=== PATIENT | female | born 1940 | race Caucasian/White ===

== ENCOUNTER 2017-03-15 06:39 | Inpatient (IN) ==
--- NOTE | 2017-03-15 07:22 | Emergency Department Report ---
General Adult HPI - General Chief complaint: Medical Emergency Stated complaint: Medication evaluation Time Seen by Provider: 03/15/17 07:22 Source: patient, family, EMS Mode of arrival: EMS Limitations: no limitations - History of Present Illness HPI narrative: Patient is a 76-year-old female presents to the emergency department for evaluation of possible generations admit. Patient history of bipolar disorder, states she stopped taking her medicine this weekend due to a surprise visit by her sons. Patient threw all of her medicines away. Patient this morning apparently turned off and unplugged all the night lights in the house as well as the coffee pot family has been concerned about her, called EMS this morning to bring patient to the ER. Original report was possible suicidality, patient denies this. Discuss case with family has been concerned about the patient for approximately a month now, he suspects she's been stopped taking her medications a month ago. Patient is not suicidal or homicidal by his report, is having issues that appear to be due to bipolar disorder out of control, did have a meeting with his psychiatrist and there is a prescription for lithium waiting. Patient brought to the ER for evaluation - Related Data Home Medications Medication Instructions Recorded Confirmed aspirin 81 mg tablet,delayed 81 mg PO DAILY tab 01/01/17 03/15/17 release lithium carbonate ER 300 mg 300 mg PO DAILY tab 01/01/17 03/15/17 tablet,extended release Previous Rx's Medication Instructions Recorded Synthroid 75 mcg tablet 75 mcg PO QAM #90 tab NS 02/02/17 Allergies Allergy/AdvReac Type Severity Reaction Status Date / Time methimazole Allergy Verified 02/02/17 08:31 Review of Systems Constitutional: Denies: fever, chills Eyes: Denies: eye discharge, vision change ENT: Denies: throat pain, dental pain Cardiovascular: Denies: chest pain, palpitations, dyspnea on exertion Respiratory: Reports: wheezes. Denies: dyspnea, hemoptysis Gastrointestinal: Denies: abdominal pain, nausea, vomiting Genitourinary: Denies: urgency, dysuria, frequency Musculoskeletal: Denies: back pain, joint swelling Neurological: Denies: headache, weakness Psychiatric: Reports: anxiety PFSH Patient Stated Medical History Bipolar Disorder Yes Clinic Medical History (Last Reviewed 02/02/17 @ 08:34 by Servando Tiwari MD) Postablative hypothyroidism (Chronic Medical ~11/2016) Clinically improved, but TSH is still elevated. Needs more Synthroid. Obesity (BMI 30-39.9) (Chronic Medical) Little better. Bipolar disorder Surgical History: Hysterectomy;1985 Family History: Family History (Last Reviewed 02/02/17 @ 08:34 by Servando Tiwari MD) Father Heart disease Mother Ovarian cancer - Social History Smoking status: Never smoker Substance use type: does not use Alcohol intake frequency: does not drink Physical Exam - Limitations Limitations: no limitations - General General appearance: alert, in no apparent distress - Eye Eye exam: Present: EOMI - ENT ENT exam: Present: normal oropharynx, mucous membranes moist - Chest Chest inspection: Present: symmetric chest wall rise. Absent: tenderness, rash - Respiratory Respiratory exam: Present: normal lung sounds bilaterally. Absent: respiratory distress, wheezes, stridor - Cardiovascular Cardiovascular exam: Present: regular rate, normal rhythm, normal heart sounds - Abdominal Exam Abdominal exam: Present: soft. Absent: distention, tenderness - Extremities Exam Extremities exam: Present: full ROM, normal capillary refill. Absent: tenderness - Back Exam Back exam: Present: full ROM. Absent: tenderness, CVA tenderness (R), CVA tenderness (L), muscle spasm - Skin Skin exam: Present: warm, dry - Psychiatric Psychiatric exam: Present: normal affect, normal mood, agitated Course Vital Signs Temperature 97.6 F 03/15/17 07:41 Pulse Rate 62 03/15/17 07:41 Respiratory Rate 18 03/15/17 07:41 Blood Pressure 160/97 H 03/15/17 07:41 Pulse Oximetry 94 03/15/17 07:41 Temperature 97.6 F 03/15/17 07:41 Pulse Rate 62 03/15/17 07:41 Respiratory Rate 18 03/15/17 07:41 Blood Pressure 160/97 H 03/15/17 07:41 Pulse Oximetry 94 03/15/17 07:41 Medical Decision Making - [facility] Narrative Medical decision making narrative: Patient does have loose associations and somewhat flight of ideas, patient also has stopped taking her thyroid medications, current TSH 78. Discuss case with Dr. Tiwari, patient does not meet any medical inpatient criteria he would just restart her thyroid 75 g daily recheck thyroid level in a month. Patient is currently being evaluated for generations admission. Does have a urinary tract infection - Differential Diagnosis poorly controlled bipolar disorder, electrolyte disturbances, UTI, - Medical Records Medical records reviewed: Yes: I reviewed the patient's medical records. - Lab Data Lab results reviewed: Yes: I reviewed the patient's lab results. Result diagrams: 03/15/17 07:40 03/15/17 07:40 Lab Results 03/15/17 03/15/17 03/15/17 Range/Units 07:40 07:40 07:55 WBC 7.3 (4.5-11.0) T/MM3 RBC 4.37 (4.00-5.20) M/MM3 Hgb 14.4 (12-16) GM/DL Hct 42.5 (36-46) % MCV 97.3 (80-100) UM3 MCH 33.0 (26-34) UUG MCHC 33.9 (31-37) GM/DL RDW Std Deviation 47.8 (36.9-50.2) FL Plt Count 187 (130-400) T/MM3 MPV 11.2 (9.4-12.4) UM3 Immature Gran % (Auto) 0.1 (0.0-0.5) % Neut % (Auto) 73.8 H (33-66) % Lymph % (Auto) 21.9 L (23-45) % [place] % (Auto) 3.4 (0-9.0) % Eos % (Auto) 0.4 (0-4) % Baso % (Auto) 0.4 (0-2) % Neut # 5.4 (1.8-7.7) T/MM3 Lymph # 1.6 (1-4.8) T/MM3 [place] # 0.3 (0-0.8) T/MM3 Eos # 0.0 (0-0.5) T/MM3 Baso # 0.0 (0-0.2) T/MM3 Abs Immat Gran (auto) 0.01 (0.00-0.03) T/MM3 Turbidity < 20 (0-20) Sodium 144 (134-144) MEQ/L Potassium 3.7 (3.6-5) MEQ/L Chloride 110 H (98-107) MEQ/L Carbon Dioxide 25 (22-30) MEQ/L Anion Gap 9 (5-15) MEQ/L BUN 15.0 (7-17) MG/DL Creatinine 0.8 (0.7-1.2) MG/DL GFR Calculation 70 BUN/Creatinine Ratio 19 (6-26) RATIO Glucose 108 (65-110) MG/DL Calculated Osmolality 279 (261-280) MOSM/KG Calcium 9.2 (8.4-10.2) MG/DL Total Bilirubin 0.70 (0.20-1.30) MG/DL Icterus Index < 2 (0-7) AST 37 H (14-36) U/L ALT 41 (9-52) U/L Alkaline Phosphatase 54 (38-126) U/L Total Protein 6.6 (6.3-8.2) G/DL Albumin 3.9 (3.5-5.0) G/DL Globulin 2.7 (2.4-3.6) G/DL Albumin/Globulin Ratio 1.4 (1.1-2.2) RATIO TSH 78.70 H (0.47-4.68) MIU/L Specimen Hemolysis < 15 (0-25) Ur Collection Type Urine, clean catch Urine Color Yellow (YELLOW) Urine Clarity Sl cloudy Urine pH 6.0 (5.0-8.0) Ur Specific [place] 1.020 (1.015-1.025) Urine Protein Negative (NEGATIVE) Urine Glucose (UA) Negative (NEGATIVE) Urine Ketones Trace A (NEGATIVE) Urine Occult Blood Trace-intact (NEGATIVE) Urine Nitrate Positive A (NEGATIVE) Urine Bilirubin Negative (NEGATIVE) Urine Urobilinogen 0.2 (NORMAL) EU/DL Ur Leukocyte Esterase 1+ A (NEGATIVE) Urine RBC 0-1 (0-3) /HPF Urine WBC 10-20 H (0-5) /HPF Urine WBC Clumps Few Ur Squamous Epith Cells 5-10 Urine Bacteria 4+ H (NEGATIVE) Ur Culture Indicated? Cult reflexed &setup [place] < 0.2 L (0.6-1.2) MMOL/L - Radiology Data Radiology results reviewed: Yes: I reviewed the patient's radiology results. Chest x-ray: No acute cardiopulmonary findings - EKG Data EKG #1 EKG attestation: Yes: I reviewed and interpreted this EKG. EKG shows normal: sinus rhythm Rate: bradycardia Rhythm: NSR Sundown/QRS: normal Interpretation: no acute changes Disposition Clinical Impression: Bipolar disorder, unspecified Qualifiers: Active/Remission status: in partial remission Most recent bipolar episode type : manic Qualified Code(s): F31.73 - Bipolar disorder, in partial remission, most recent episode manic Urinary tract infection Qualifiers: Urinary tract infection type: acute cystitis Hematuria presence: without hematuria Qualified Code(s): N30.00 - Acute cystitis without hematuria Hypothyroidism Qualifiers: Hypothyroidism type: postablative Qualified Code(s): E89.0 - Postprocedural hypothyroidism Disposition: 64 To [facility] [place] Generations Condition: Stable Prescriptions: No Action lithium carbonate ER 300 mg tablet,extended release 300 mg PO DAILY tab aspirin 81 mg tablet,delayed release 81 mg PO DAILY tab Synthroid 75 mcg tablet 75 mcg PO QAM #90 tab NS Time of Disposition: 09:17 - Seen By: physician
--- OUTSIDE RECORDS SUMMARY | 2017-03-15 07:31 | External Medical Summary ---
:1940 Author Organization [facility]. Summary purpose CCDA Sent to [facility] Chief Complaint and Reason for Visit Admit Diagnosis 1 RASH Problem list No authorized problems tracked for continuity of care are available for this visit. Encounters No authorized problems tracked for encounter diagnoses are available for this visit. Medications No medications recorded for this patient visit Allergies, adverse reactions, alerts Allergen Category Ingredient Status Reaction Severity Onset Influenza Virus Drug Influenza Virus Active thickness in Adolescence Vaccines Vaccines throat Immunizations No immunizations recorded for this patient visit Relevant diagnostic tests and/or laboratory data RESULTS CBC :25:00 Result Normal Range Units WBC H 14.99 4.8-10.8 x103/mm3 Neutrophil % H 84.9 50-70 % Lymph % L 11.6 20-50 % [place] % 3.1 1.0-9.0 % Eosinophil % 0.3 0-4 % Basophil % 0.1 0-2 % Neutrophil # H 12.73 3.0-7.0 x103/mm3 Lymph # 1.74 1.0-4.0 x103/mm3 [place] # 0.46 0.0-0.8 x103/mm3 Eosinophil # 0.04 0-0.5 x103/mm3 Basophil # 0.02 0-0.2 x103/mm3 RBC 4.90 4.20-5.40 x103/mm3 HGB 15.4 12.0-16.0 g/dl HCT 43.7 37.0-47.0 % MCV 89.2 81-99 FL MCH H 31.4 27.0-31.0 pg MCHC 35.2 32.0-36.0 g/dl RDW 14.4 12-15 % Platelet 261 150-400 x103/mm3 MPV H 11.6 6.0-10.0 FL Chemistry Group :25:00 Result Normal Range Units Sodium 136 134-145 mmol/L Potassium 4.1 3.6-5.0 mmol/L Chloride 99 98-107 mmol/L CO2 25 22-30 mmol/L Glucose H 139 75-110 mg/dl BUN 15 9-20 mg/dl Creatinine L .78 0.8-1.7 mg/dl eGFR 72 ml/min. Total Protein 7.1 6.3-8.2 g/dl Albumin 3.7 3.5-5.0 g/dl Calcium 9.2 8.4-10.2 mg/dl Alk Phos 74 38-126 U/L AST 36 14-36 U/L ALT 27 11-66 U/L T Bili 1.0 0.2-1.3 mg/dl A/G Ratio 1.1 Ratio Special Chemistry Group [id number] Result Normal Range Units Free T4 H 2.17 0.75-1.54 ng/dl TSH L < 0.03 0.50-6.00 uIU/mL Reference Lab Group [id number]:00 Result Normal Range Units [place] L 0.50 0.60-1.20 mEq/L [place] performed at [facility] Reference Lab, [address] [place] [address] Group Fitness Manager Andressa Rivero DO [id number]:00 Result Normal Range Units Free T3 2.8 1.7-3.7 pg/mL T3 Free performed at [facility] Reference Lab, [address] [place], [place] [address] Group Fitness Manager Andressa Rivero DO History of procedures Procedure Code Code Type Description Date Performed Performing Physician 93976 CPT-4 ASSAY THYROID STIM 02-17-2016 EDWIN MCDERMOTT HORMONE 30048 CPT-4 COMPREHEN METABOLIC 02-17-2016 EDWIN MCDERMOTT PANEL 14054 CPT-4 COMPLETE CBC, 02-17-2016 EDWIN MCDERMOTT AUTOMATED 46473 CPT-4 FREE ASSAY (FT-3) 02-17-2016 EDWIN MCDERMOTT 56637 CPT-4 ASSAY OF FREE 02-17-2016 EDWIN MCDERMOTT THYROXINE 10289 CPT-4 ASSAY OF LITHIUM 02-17-2016 EDWIN MCDERMOTT 98183 CPT-4 EMERGENCY DEPT VISIT 02-17-2016 EDWIN MCDERMOTT Functional status Cognitive Status Finding Observation Time Level of Consciousne Alert [id number] Oriented to Person Yes [id number] Yes :46 Oriented to Time Yes :46 Vital signs Type Value Date Respirations 20 :30 Pulse 112 :31 O2 Saturation 94% :30 Systolic Blood Press 118mm/HG :30 Diastolic Blood Pres 67mm/HG :30 Temperature (Fahr) 97.6Degrees :30 Height 64in :40 Weight 145LB :40 Social history Type Value Smoking Status UNKNOWN IF EVER SMOKED Treatment Plan No treatment plan text is available for this visit. Hospital discharge instructions No discharge instruction text is available for this visit.
--- NOTE | 2017-03-15 08:17 | XRay Report ---
Indication: generations screening PROCEDURE: XR chest 1V: Encounter: Initial Comparison: None FINDINGS: The lungs are clear. There is no abnormal airspace opacity, pleural effusion or pneumothorax identified. The heart size, pulmonary vasculature and mediastinum are within normal limits. No significant skeletal abnormality is seen. IMPRESSION: No acute cardiopulmonary abnormality. .
[2017-03-15] MEDS ORDERED: HALOPERIDOL 5 MG/ML INJECTION IM PRN (09:17)
[2017-03-15] MEDS ORDERED: LORazepam 0.5 MG TABLET PO PRN (09:17)
[2017-03-15] MEDS ORDERED: HALOPERIDOL 0.5 MG TABLET PO PRN (09:17)
[2017-03-15 12:20] VITALS: BMI 31.9
--- NOTE | 2017-03-15 12:40 | History & Physical Report ---
<Brielle Ramirez D - Last Filed: 03/15/17 12:36> History of Present Illness Date: 03/15/17 Chief complaint: "Messed up" HPI: Brielle Haro is a 76 year old woman with a history of bipolar disorder and hypothyroidism. Family wanted her evaluated for Generations because she stopped taking all of her medications about a month ago, and has been behaving oddly. She saw Dr. Tiwari for hypothyroidism on 02/02/17 at which time Synthroid was increased to 75 mcg because TSH was 17.41. Today, her TSH is 78.7. She also has a UTI. She states she's felt cold recently. She states that other than being "messed up" and "upside down" she doesn't have any acute medical complaints. She notes some numbness to the arch of her left foot, but wasn't able to say how long it's been present, other than it didn't start recently. She described a fall but wasn't able to provide details, and indicated that since then she's had the arch numbness. She's been able to ambulate without difficulty. She denies any fever or chills, cough, dysphagia, dizziness, weakness, fatigue. No chest pain or cardiac or breathing complaints. She denies abdominal pain/ bloating, n/v/d or constipation. She denies any dysuria or frequency but wasn't surprised to hear that she has UTI. She denies joint pain and has good active ROM. She reports that she's been sleeping well. Review of Systems Comprehensive ROS: completed and no additional positive findings except those as stated - Neurological Neurological: Present: as per HPI - Endocrine Endocrine: Present: other (feels cold) PFSH Bipolar disorder Postablative hypothyroidism Obesity (BMI 30-39.9) Surgical History: Hysterectomy;1985. thyroid ablation Family History: Father - Heart disease Mother - Ovarian cancer 2 sons A&W - Social History Smoking status: Never smoker Substance use type: does not use Alcohol intake frequency: does not drink Household members: spouse Current occupational status: retired Previous occupational history: homemaker Medications Home Medications Medication Instructions Recorded Confirmed Type aspirin 81 mg tablet,delayed 81 mg PO DAILY tab 01/01/17 03/15/17 History release lithium carbonate ER 300 mg 300 mg PO DAILY tab 01/01/17 03/15/17 History tablet,extended release Allergies Allergy/AdvReac Type Severity Reaction Status Date / Time Influenza Virus Vaccines Allergy Intermediate Rash Verified 03/15/17 13:21 methimazole Allergy Verified 02/02/17 08:31 Exam Vital Signs: Temperature 97.6 F 03/15/17 07:41 Pulse Rate 62 03/15/17 08:30 Respiratory Rate 18 03/15/17 08:30 Blood Pressure 124/75 03/15/17 08:30 Pulse Oximetry 94 03/15/17 08:30 Height/Weight/BMI: Height 1.57 m Weight 79.2 kg Body Mass Index 31.9 - Constitutional Present: no acute distress, well nourished, well developed, obese - Routine HEENT Exam Head: Present: normocephalic Eye: Present: PERRL. Absent: conjunctival icterus, scleral injection, exophthalmos ENT: Present: mucous membranes moist, oropharynx clear - Routine Neck Exam Present: supple. Absent: tenderness, swelling - Routine Respiratory Exam Present: CTA bilaterally - Routine Cardiovascular Exam Present: RRR, S1, S2 - Routine Abdominal Exam Present: soft, normoactive bowel sounds, non distended, non tender - Routine Extremities Exam Present: edema (trace b/l), pulses intact, normal capillary refill. Absent: calf tenderness Comments: feet inspected - no bruising/signs of trauma, nontender, no wounds - Routine Back/Spine/Pelvis Exam Back/Spine: Present: full ROM. Absent: vertebral tenderness - Routine Skin Exam Present: intact, dry, warm - Routine Neurological Exam Present: alert, oriented X3, CN II-XII intact, normal speech - Routine Psychiatric Exam Present: normal affect, cooperative Results - Labs CBC & Chem 7: 03/15/17 07:40 03/15/17 07:40 Assessment and Plan (1) Bipolar disorder, unspecified Current visit: Yes Status: Acute (2) Postablative hypothyroidism Current visit: No Status: Chronic (3) Urinary tract infection Current visit: Yes Status: Acute Resuscitation Status: Full Code Assessment and Plan: ASSESSMENT Bipolar disorder Asymptomatic bacteruria Hypothyroidism, postablation PLAN Psychiatric management per Dr. Roy. [place] has been restarted. Recommend routine workup. Asymptomatic bacteruria - will wait to start antibiotics. Follow results of culture. If she becomes symptomatic will start antibiotics. Resume Synthroid ( reports that he didn't think she's been taking her meds for about a month). When she last saw Dr. Tiwari 02/02/17 her TSH was 17.41 and he increased Synthroid to 75 mcg. Today, her TSH is 78.7 - ED MD discussed with Dr. Tiwari who recommended to resume Synthroid at 75 mcg. Recheck TSH in a month. Blood pressure was elevated on 2 of 3 readings since arrival. If this trend continues we may start her on an antihypertensive. Labs reviewed - stable. Mild elevation in AST. Dr. Tiwari's notes reviewed. Awaiting records from Dr. Bañuelos's office. Discussed with Dr. Man and [employer] staff. Hospital Course Summary Disclaimer: The visit summary below is not to be considered part of the above Progress Note. Hospital Course: 03/15/17-Hospitalist consult ASSESSMENT Bipolar disorder Asymptomatic bacteruria Hypothyroidism, postablation PLAN Psychiatric management per Dr. Roy. [place] has been restarted. Recommend routine workup. Asymptomatic bacteruria - will wait to start antibiotics. Follow results of culture. If she becomes symptomatic will start antibiotics. Resume Synthroid ( reports that he didn't think she's been taking her meds for about a month). When she last saw Dr. Tiwari 02/02/17 her TSH was 17.41 and he increased Synthroid to 75 mcg. Today, her TSH is 78.7 - ED MD discussed with Dr. Tiwari who recommended to resume Synthroid at 75 mcg. Recheck TSH in a month. Blood pressure was elevated on 2 of 3 readings since arrival. If this trend continues we may start her on an antihypertensive. Labs reviewed - stable. Mild elevation in AST. Dr. Tiwari's notes reviewed. Awaiting records from Dr. Bañuelos's office. Discussed with Dr. Man and [employer] staff. <Kerri Man - Last Filed: 03/15/17 21:35> History of Present Illness Date: 03/15/17 [facility] Patient Stated Medical History Hx Urinary Tract Infection Yes: current Other Yes: urgency Bipolar Disorder Yes Clinic Medical History (Last Reviewed 02/02/17 @ 08:34 by Servando Tiwari MD) Postablative hypothyroidism (Chronic Medical ~11/2016) Obesity (BMI 30-39.9) (Chronic Medical) Little better. Family History: Family History (Last Reviewed 02/02/17 @ 08:34 by Servando Tiwari MD) Father Heart disease Mother Ovarian cancer Exam Vital Signs: Temperature 97.2 F 03/15/17 20:44 Pulse Rate 62 03/15/17 20:44 Respiratory Rate 20 03/15/17 20:44 Blood Pressure 107/68 03/15/17 20:44 Pulse Oximetry 94 03/15/17 20:44 Height/Weight/BMI: Height 5 ft 2 in Weight 174 lb 9.698 oz Body Mass Index 31.9 Results - Labs CBC & Chem 7: 03/15/17 07:40 03/15/17 07:40 Assessment and Plan (1) Postablative hypothyroidism Current visit: No Status: Chronic (2) Bipolar disorder, unspecified Current visit: Yes Status: Acute (3) Urinary tract infection Current visit: Yes Status: Acute Assessment and Plan: I have independently evaluated and examined this patient. I reviewed the chart, the patient's history, and the PALEOBOTANIST/PA's documented findings as above. We discussed and formulated the assessment and plan as above with additions as below. The patient is resting quietly, the nurses report she has urinary frequency however she is drinking a lot of fluid. She has not complained of any pain on urination or any flank pain that the nurse's aware of. Physical exam as above she is resting quietly with no acute respiratory distress. no obvious flank pain It is unclear how she received the diagnosis of UTI suspect that she has asymptomatic bacteriuria will follow along with you.l Hospital Course Summary Disclaimer: The visit summary below is not to be considered part of the above Progress Note.
[2017-03-15] MEDS: LITHIUM CARBONATE 150 MG CAPSULE PO SCH ×2 (13:39→20:22)
[2017-03-15] MEDS: LEVOTHYROXINE 75 MCG TABLET PO SCH (13:39)
[2017-03-15] MEDS: ASPIRIN *EC* 81 MG TABLET PO SCH (13:39)
--- NOTE | 2017-03-15 20:35 | 24 Hour Neuropsychiatic Eval ---
Date of Admission: 03/15/17 09:38 Chief complaint: "My kids came home" History of Present Illness: HPI: 76 Y/O CF with a hx of Bipolar D/O and hypothyroidism BB for increasing odd behavior over the last few days. reports recently the pt stop taking her meds and has been increasingly confused with bizarre behavior. Pt would lie on the floor and not speak and not allow her to turn on the lights. She was paranoid believing her would be arrested and has not been sleeping. It was noted her [place] level was 0.2 and her TSh was in the 70's. On face to face the pt is pleasant but confused. She is tangential with pressured speech. She is a poor historian and is not able to give a very good hx. STRESSORS; Pt recently stopped taking her meds. Her lithium level is low and TSH is elevatyd. She also has a UTI. PSYCH ROS: Pt reports her mood is stable. She does report decreased need for sleep and her speech is pressured and tangential. She is hyperverbal but not irritable. She denies feeling depressed. Denies psychosis. PAST PSYCH: Unclear at this time. reports she has been diagnosed with Bipolar D/O and has numerous hospitalizations in the past but they wee many years ago. He states about every eight years the pt stops meds and has a similar episode PFS Patient Stated Medical History Hx Urinary Tract Infection Yes: current Other Yes: urgency Bipolar Disorder Yes Clinic Medical History (Last Reviewed 02/02/17 @ 08:34 by Servando Tiwari MD) Postablative hypothyroidism (Chronic Medical ~11/2016) Obesity (BMI 30-39.9) (Chronic Medical) Little better. Surgical History: Hysterectomy;1985. thyroid ablation Family History: Family History (Last Reviewed 02/02/17 @ 08:34 by Servando Tiwari MD) Father Heart disease Mother Ovarian cancer - Social History Smoking status: Never smoker Review of Systems - Psychiatric Psychiatric: Present: behavioral changes, difficulty concentrating, mood swings Mental Status Exam Vitals: Last Vital Signs Temp 97.6 F 03/15/17 10:05 Pulse 83 03/15/17 10:05 Resp 16 03/15/17 10:05 BP 144/84 H 03/15/17 10:05 Pulse Ox 94 03/15/17 10:05 Height: 1.57 m Weight: 79.2 kg - Mental Status Exam Muscle Strength/Tone: Normal Dressing: Casual Grooming: Good Attitude: Cooperative Motor Activity: Normal Eye Contact: Fair Speech: Rapid, Pressured Volume: Normal Rhythm: Appropriate Rhythm Orientation: Oriented X4 Mood: Euphoric Affect: Happy Rate of Thoughts: Pressured Thought Organization: Disorganized Associations: Flight of Ideas Abstract Reasoning: Poor abstract reasoning Thought Content: Grandeur Perception/Psychotic: Hx psychosis, not current Language: Naming Impaired Fund of Knowledge: Poor fund of knowledge Memory: Poor-immediate Suicidal Ideation: None Homicidal Ideation: None Insight: Poor Judgement: Poor Impulse Control: Poor - Laboratory Result Diagrams: 03/15/17 07:40 03/15/17 07:40 Assessment and Plan (1) Severe manic bipolar 1 disorder with psychotic behavior Current visit: Yes Status: Acute Will restart [place] 150mg PO BID. Consult medical team to treat hypothyroidism and UTI (2) Hypothyroidism Qualifiers: Hypothyroidism type: postablative Qualified Code(s): E89.0 - Postprocedural hypothyroidism Current visit: Yes Status: Acute (3) Urinary tract infection Qualifiers: Urinary tract infection type: acute cystitis Hematuria presence: without hematuria Qualified Code(s): N30.00 - Acute cystitis without hematuria Current visit: Yes Status: Acute
[2017-03-16] MEDS: LEVOTHYROXINE 75 MCG TABLET PO SCH ×2 (05:25→08:37)
[2017-03-16] MEDS: ASPIRIN *EC* 81 MG TABLET PO SCH (08:34)
[2017-03-16] MEDS: LITHIUM CARBONATE 150 MG CAPSULE PO SCH ×2 (08:35→20:29)
[2017-03-16] MEDS ORDERED: LITHIUM CARBONATE 300 MG PO SCH (09:00)
[2017-03-16] MEDS ORDERED: LITHIUM CARBONATE 300 MG CAPSULE PO SCH (09:00)
[2017-03-16] MEDS: NITROFURANTOIN (MACROBID) 100 MG CAPSULE PO SCH (12:02)
--- NOTE | 2017-03-16 18:55 | Neuropsych Progress Note ---
[facility] Subjective Date: 03/16/17 - Sujective/Severity of Illness Medications: Aspirin (Ecotrin) 81 mg PO DAILY [facility] Last Admin: 03/16/17 08:34 Dose: 81 mg Haloperidol (Haldol) 0.5 mg PO Q6H PRN PRN Reason: Extreme agitation Haloperidol Lactate (Haldol) 0.5 mg IM Q6H PRN PRN Reason: Extreme agitation Levothyroxine Sodium (Synthroid) 75 mcg PO ACB [facility] Carbonate ([place]) 150 mg PO BID [facility] Last Admin: 03/16/17 08:35 Dose: 150 mg Lorazepam (Ativan) 0.5 mg PO Q6H PRN PRN Reason: Extreme agitation Lorazepam (Ativan Inj) 0.5 mg IM Q6H PRN PRN Reason: Extreme agitation Nitrofurantoin Macrocrystals (Macrobid) 100 mg PO WB [facility] Stop: 03/18/17 08:01 Last Admin: 03/16/17 12:02 Dose: 100 mg Subjective: Pt seen and chart examined. Nursing reports pt is sleeping well and has a good appetite. On face to face the pt is a little more organized but remains some what disorganized and tangential. She is alert and oriented and states she feels she is improving. She is some what grandiose. She denies S/I or psychosis. Tolerating meds Start Time: 17:15 Stop Time: 17:30 Mental Status Exam Vitals: Last Vital Signs Temp 98.6 F 03/16/17 16:00 Pulse 64 03/16/17 16:00 Resp 16 03/16/17 16:00 BP 127/79 03/16/17 16:00 Pulse Ox 64 L 03/16/17 16:00 Height: 1.57 m Weight: 79.2 kg - Mental Status Exam Muscle Strength/Tone: Normal Dressing: Casual Grooming: Good Attitude: Cooperative Motor Activity: Normal Eye Contact: Fair Speech: Rapid, Pressured Volume: Normal Rhythm: Appropriate Rhythm Orientation: Oriented X4 Mood: Euphoric Rate of Thoughts: Pressured Thought Organization: Disorganized Associations: Flight of Ideas Abstract Reasoning: Poor abstract reasoning Thought Content: Grandeur Perception/Psychotic: Hx psychosis, not current Language: Naming Impaired Fund of Knowledge: Poor fund of knowledge Memory: Poor-immediate Suicidal Ideation: None Homicidal Ideation: None Insight: Poor Judgement: Poor Impulse Control: Poor - Laboratory Result Diagrams: 03/15/17 07:40 03/15/17 07:40 Assessment and Plan (1) Severe manic bipolar 1 disorder with psychotic behavior Current visit: Yes Status: Acute (2) Hypothyroidism Qualifiers: Hypothyroidism type: postablative Qualified Code(s): E89.0 - Postprocedural hypothyroidism Current visit: Yes Status: Acute (3) Urinary tract infection Qualifiers: Urinary tract infection type: acute cystitis Hematuria presence: without hematuria Qualified Code(s): N30.00 - Acute cystitis without hematuria Current visit: Yes Status: Acute Hospital Course Summary Disclaimer: The visit summary below is not to be considered part of the above Progress Note. Hospital Course: 03/15/17-Hospitalist consult ASSESSMENT Bipolar disorder Asymptomatic bacteruria Hypothyroidism, postablation PLAN Psychiatric management per Dr. Roy. [place] has been restarted. Recommend routine workup. Asymptomatic bacteruria - will wait to start antibiotics. Follow results of culture. If she becomes symptomatic will start antibiotics. Resume Synthroid ( reports that he didn't think she's been taking her meds for about a month). When she last saw Dr. Tiwari 02/02/17 her TSH was 17.41 and he increased Synthroid to 75 mcg. Today, her TSH is 78.7 - ED MD discussed with Dr. Tiwari who recommended to resume Synthroid at 75 mcg. Recheck TSH in a month. Blood pressure was elevated on 2 of 3 readings since arrival. If this trend continues we may start her on an antihypertensive. Labs reviewed - stable. Mild elevation in AST. Dr. Tiwari's notes reviewed. Awaiting records from Dr. Bañuelos's office. Discussed with Dr. Man and [facility] staff. 03/16/17 18:55 Pt remains tangential and some what disorganized. Increase [place] to 300mg PO BID
[2017-03-17] MEDS: ASPIRIN *EC* 81 MG TABLET PO SCH (10:01)
[2017-03-17] MEDS: NITROFURANTOIN (MACROBID) 100 MG CAPSULE PO SCH (10:01)
[2017-03-17] MEDS: LEVOTHYROXINE 75 MCG TABLET PO SCH (10:01)
[2017-03-17] MEDS: LITHIUM CARBONATE 150 MG CAPSULE PO SCH ×2 (10:02→20:07)
--- NOTE | 2017-03-17 12:38 | Neuropsych Progress Note ---
[facility] Subjective Date: 03/17/17 - Sujective/Severity of Illness Medications: Aspirin (Ecotrin) 81 mg PO DAILY [facility] Last Admin: 03/17/17 10:01 Dose: 81 mg Haloperidol (Haldol) 0.5 mg PO Q6H PRN PRN Reason: Extreme agitation Haloperidol Lactate (Haldol) 0.5 mg IM Q6H PRN PRN Reason: Extreme agitation Levothyroxine Sodium (Synthroid) 75 mcg PO ACB [facility] Last Admin: 03/17/17 10:01 Dose: 75 mcg [place] Carbonate ([place]) 300 mg PO BID [facility] Last Admin: 03/17/17 10:02 Dose: 300 mg Lorazepam (Ativan) 0.5 mg PO Q6H PRN PRN Reason: Extreme agitation Lorazepam (Ativan Inj) 0.5 mg IM Q6H PRN PRN Reason: Extreme agitation Nitrofurantoin Macrocrystals (Macrobid) 100 mg PO WB [facility] Stop: 03/18/17 08:01 Last Admin: 03/17/17 10:01 Dose: 100 mg Subjective: Pt seen and chart examined. Nursing reports pt is sleeping well and has a good appetite. Nursing reports pt can be some what disorganized and tangential with pressured speech. On face to face the pt states she is doing well. She reports her mood is stable. She remains some what pressured and tangential and slightly disorganized. She reports tolerating her medication well. Start Time: 11:30 Stop Time: 11:45 Mental Status Exam Vitals: Last Vital Signs Temp 99.0 F 03/17/17 08:00 Pulse 78 03/17/17 08:00 Resp 16 03/17/17 08:00 BP 116/80 03/17/17 08:00 Pulse Ox 95 03/17/17 08:00 Height: 1.57 m Weight: 79.2 kg - Mental Status Exam Muscle Strength/Tone: Normal Dressing: Casual Grooming: Good Attitude: Cooperative Motor Activity: Normal Eye Contact: Fair Speech: Rapid, Pressured Volume: Normal Rhythm: Appropriate Rhythm Orientation: Oriented X4 Mood: Euphoric Rate of Thoughts: Pressured Thought Organization: Disorganized Associations: Flight of Ideas Abstract Reasoning: Poor abstract reasoning Thought Content: Grandeur Perception/Psychotic: Hx psychosis, not current Language: Naming Impaired Fund of Knowledge: Poor fund of knowledge Memory: Poor-immediate Suicidal Ideation: None Homicidal Ideation: None Insight: Poor Judgement: Poor Impulse Control: Poor - Laboratory Result Diagrams: 03/15/17 07:40 03/15/17 07:40 Assessment and Plan (1) Severe manic bipolar 1 disorder with psychotic behavior Current visit: Yes Status: Acute (2) Hypothyroidism Qualifiers: Hypothyroidism type: postablative Qualified Code(s): E89.0 - Postprocedural hypothyroidism Current visit: Yes Status: Acute (3) Urinary tract infection Qualifiers: Urinary tract infection type: acute cystitis Hematuria presence: without hematuria Qualified Code(s): N30.00 - Acute cystitis without hematuria Current visit: Yes Status: Acute Hospital Course Summary Disclaimer: The visit summary below is not to be considered part of the above Progress Note. Hospital Course: 03/15/17-Hospitalist consult ASSESSMENT Bipolar disorder Asymptomatic bacteruria Hypothyroidism, postablation PLAN Psychiatric management per Dr. Roy. [place] has been restarted. Recommend routine workup. Asymptomatic bacteruria - will wait to start antibiotics. Follow results of culture. If she becomes symptomatic will start antibiotics. Resume Synthroid ( reports that he didn't think she's been taking her meds for about a month). When she last saw Dr. Tiwari 02/02/17 her TSH was 17.41 and he increased Synthroid to 75 mcg. Today, her TSH is 78.7 - ED MD discussed with Dr. Tiwari who recommended to resume Synthroid at 75 mcg. Recheck TSH in a month. Blood pressure was elevated on 2 of 3 readings since arrival. If this trend continues we may start her on an antihypertensive. Labs reviewed - stable. Mild elevation in AST. Dr. Tiwari's notes reviewed. Awaiting records from Dr. Bañuelos's office. Discussed with Dr. Man and [facility] staff. 03/16/17 18:55 Pt remains tangential and some what disorganized. Increase [place] to 300mg PO BID 03/17/17 12:38 Remains tangential and disorganized. Start Zyprexa 5mg HS
[2017-03-17] MEDS: OLANZapine 5 MG TABLET PO SCH ×3 (15:32→20:14)
--- NOTE | 2017-03-17 15:36 | Progress Note ---
Subjective: Brielle is seen sitting in the day room watching TV. Overall she states she is feeling very well. Her appetite is good. She believes she hasn't had a bowel movement since she came. Is not having any abdominal pain. Has been trying to drink plenty of fluids. In review of the chart, however, it is noted that she had 2 bowel movements yesterday. She is on Macrobid for UTI. It appears this was started by Dr. Man yesterday. Culture is pending. No chest pain or shortness of breath. Nurses have no concerns with her at this time. Objective Vital signs: Temperature 99.0 F 03/17/17 08:00 Pulse Rate 78 03/17/17 08:00 Respiratory Rate 16 03/17/17 08:00 Blood Pressure 116/80 03/17/17 08:00 Pulse Oximetry 95 03/17/17 08:00 Height/Weight/BMI: Height 1.57 m Weight 79.2 kg Body Mass Index 31.9 - Constitutional Present: no acute distress, well nourished, well developed - Routine Respiratory Exam Present: CTA bilaterally. Absent: wheezes - Routine Cardiovascular Exam Present: RRR, S1, S2. Absent: murmur - Routine Abdominal Exam Present: soft, normoactive bowel sounds, non distended. Absent: tenderness - Routine Extremities Exam Present: no edema, normal capillary refill - Routine Skin Exam Present: dry, warm - Routine Neurological Exam Present: alert - Routine Lymphatic Exam Lymphatic: Absent: adenopathy - Routine Psychiatric Exam Present: normal affect Comments: Talkative. Pleasant. 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 I will order this PRN and start MiraLAX daily. Continue thyroid medicine with outpatient follow-up. Finish Macrobid for UTI. Sepsis Assessment - Evaluation Sepsis screening result: No Definite Risk Hospital Course Summary Disclaimer: The visit summary below is not to be considered part of the above Progress Note. Hospital Course: 03/15/17-Hospitalist consult ASSESSMENT Bipolar disorder Asymptomatic bacteruria Hypothyroidism, postablation PLAN Psychiatric management per Dr. Roy. [place] has been restarted. Recommend routine workup. Asymptomatic bacteruria - will wait to start antibiotics. Follow results of culture. If she becomes symptomatic will start antibiotics. Resume Synthroid ( reports that he didn't think she's been taking her meds for about a month). When she last saw Dr. Tiwari 02/02/17 her TSH was 17.41 and he increased Synthroid to 75 mcg. Today, her TSH is 78.7 - ED MD discussed with Dr. Tiwari who recommended to resume Synthroid at 75 mcg. Recheck TSH in a month. Blood pressure was elevated on 2 of 3 readings since arrival. If this trend continues we may start her on an antihypertensive. Labs reviewed - stable. Mild elevation in AST. Dr. Tiwari's notes reviewed. Awaiting records from Dr. Bañuelos's office. Discussed with Dr. Man and [facility] staff. 03/16/17 18:55 Pt remains tangential and some what disorganized. Increase [place] to 300mg PO BID 03/17/17 12:38 Remains tangential and disorganized. Start Zyprexa 5mg HS
[2017-03-17] MEDS ORDERED: GLYCERIN ADULT RECTAL SUPPOSITORY RECTALLY PRN (15:56)
[2017-03-18] MEDS: ASPIRIN *EC* 81 MG TABLET PO SCH (08:35)
[2017-03-18] MEDS: LITHIUM CARBONATE 150 MG CAPSULE PO SCH ×2 (08:35→20:31)
[2017-03-18] MEDS: NITROFURANTOIN (MACROBID) 100 MG CAPSULE PO SCH (08:35)
[2017-03-18] MEDS: POLYETHYL GLYCOL 3350 17gm PACKET PO SCH (08:35)
[2017-03-18] MEDS: LEVOTHYROXINE 75 MCG TABLET PO SCH (08:35)
--- NOTE | 2017-03-18 12:37 | Neuropsych Progress Note ---
[facility] Subjective Date: 03/18/17 - Sujective/Severity of Illness Medications: Aspirin (Ecotrin) 81 mg PO DAILY [facility] Last Admin: 03/18/17 08:35 Dose: 81 mg Glycerin (Sani-Supp) 1 supp RECTALLY PRN PRN PRN Reason: Constipation Last Admin: 03/17/17 18:10 Dose: 1 supp Haloperidol (Haldol) 0.5 mg PO Q6H PRN PRN Reason: Extreme agitation Haloperidol Lactate (Haldol) 0.5 mg IM Q6H PRN PRN Reason: Extreme agitation Levothyroxine Sodium (Synthroid) 75 mcg PO ACB [facility] Last Admin: 03/18/17 08:35 Dose: 75 mcg [place] Carbonate ([place]) 300 mg PO BID [facility] Last Admin: 03/18/17 08:35 Dose: 300 mg Lorazepam (Ativan) 0.5 mg PO Q6H PRN PRN Reason: Extreme agitation Lorazepam (Ativan Inj) 0.5 mg IM Q6H PRN PRN Reason: Extreme agitation Olanzapine (Zyprexa) 5 mg PO HS [facility] Last Admin: 03/17/17 20:14 Dose: Not Given Polyethylene Glycol (Miralax) 17 gm PO DAILY [facility] Last Admin: 03/18/17 08:35 Dose: 17 gm Subjective: Pt seen and chart examined. Nursing reports pt remains tangential but she has been pleasant and no behaviors. Did refuse HS Zyprexa. On face to face the pt is pleasant but remains tangential. SHe reports her mood is stable. She denies any S/I or psychosis. Tolerating meds Start Time: 10:45 Stop Time: 11:00 Mental Status Exam Vitals: Last Vital Signs Temp 98.0 F 03/18/17 08:00 Pulse 76 03/18/17 08:00 Resp 16 03/18/17 08:00 BP 129/69 03/18/17 08:00 Pulse Ox 97 03/18/17 08:00 Height: 1.57 m Weight: 79.2 kg - Mental Status Exam Muscle Strength/Tone: Normal Dressing: Casual Grooming: Good Attitude: Cooperative Motor Activity: Normal Eye Contact: Fair Speech: Rapid, Pressured Volume: Normal Rhythm: Appropriate Rhythm Orientation: Oriented X4 Mood: Euphoric Rate of Thoughts: Pressured Thought Organization: Disorganized Associations: Flight of Ideas Abstract Reasoning: Poor abstract reasoning Thought Content: Grandeur Perception/Psychotic: Hx psychosis, not current Language: Naming Impaired Fund of Knowledge: Poor fund of knowledge Memory: Poor-immediate Suicidal Ideation: None Homicidal Ideation: None Insight: Poor Judgement: Poor Impulse Control: Poor - Laboratory Result Diagrams: 03/15/17 07:40 03/15/17 07:40 Assessment and Plan (1) Severe manic bipolar 1 disorder with psychotic behavior Current visit: Yes Status: Acute (2) Hypothyroidism Qualifiers: Hypothyroidism type: postablative Qualified Code(s): E89.0 - Postprocedural hypothyroidism Current visit: Yes Status: Acute (3) Urinary tract infection Qualifiers: Urinary tract infection type: acute cystitis Hematuria presence: without hematuria Qualified Code(s): N30.00 - Acute cystitis without hematuria Current visit: Yes Status: Acute Hospital Course Summary Disclaimer: The visit summary below is not to be considered part of the above Progress Note. Hospital Course: 03/15/17-Hospitalist consult ASSESSMENT Bipolar disorder Asymptomatic bacteruria Hypothyroidism, postablation PLAN Psychiatric management per Dr. Roy. [place] has been restarted. Recommend routine workup. Asymptomatic bacteruria - will wait to start antibiotics. Follow results of culture. If she becomes symptomatic will start antibiotics. Resume Synthroid ( reports that he didn't think she's been taking her meds for about a month). When she last saw Dr. Tiwari 02/02/17 her TSH was 17.41 and he increased Synthroid to 75 mcg. Today, her TSH is 78.7 - ED MD discussed with Dr. Tiwari who recommended to resume Synthroid at 75 mcg. Recheck TSH in a month. Blood pressure was elevated on 2 of 3 readings since arrival. If this trend continues we may start her on an antihypertensive. Labs reviewed - stable. Mild elevation in AST. Dr. Tiwari's notes reviewed. Awaiting records from Dr. Bañuelos's office. Discussed with Dr. Man and [facility] staff. 03/16/17 18:55 Pt remains tangential and some what disorganized. Increase [place] to 300mg PO BID 03/17/17 12:38 Remains tangential and disorganized. Start Zyprexa 5mg HS 03/18/17 12:36 Remains tangential. Continue current care and encourage pt to take Zyprexa
[2017-03-18] MEDS: OLANZapine 5 MG TABLET PO SCH (20:31)
[2017-03-18] MEDS ORDERED: ONDANSETRON ODT 4 MG TABLET PO PRN (20:41)
[2017-03-19] MEDS: LEVOTHYROXINE 75 MCG TABLET PO SCH (06:22)
[2017-03-19] MEDS: ASPIRIN *EC* 81 MG TABLET PO SCH (09:46)
[2017-03-19] MEDS: LITHIUM CARBONATE 150 MG CAPSULE PO SCH ×2 (09:46→20:14)
--- NOTE | 2017-03-19 09:59 | Progress Note ---
Subjective: Patient is seen today lying in her bed. She reports she vomited last evening after supper and again before bed. She reports today she feels fine. She feels "cleaned out." She has not yet had breakfast. She states she plans to have some broth for lunch. She is not been having runny stools. She did have some prune juice yesterday afternoon because she felt she was constipated. She was diagnosed with UTI when she came through the ER. She had 3 doses of Macrobid. It is unclear why only 3 doses of Macrobid was ordered. There is still some concern by staff that she could have some delirium caused by UTI. Patient is not having any urinary symptoms such as burning with urination, frequency, or blood in the urine. Objective Vital signs: Temperature 97.6 F 03/18/17 20:00 Pulse Rate 102 H 03/18/17 20:00 Respiratory Rate 20 03/18/17 20:00 Blood Pressure 138/89 03/18/17 20:00 Pulse Oximetry 95 03/18/17 20:00 Height/Weight/BMI: Height 1.57 m Weight 79.2 kg Body Mass Index 31.9 - Constitutional Present: no acute distress, well nourished, well developed - Routine HEENT Exam Head: Present: normocephalic ENT: Present: mucous membranes moist - Routine Respiratory Exam Present: CTA bilaterally. Absent: wheezes - Routine Cardiovascular Exam Present: RRR, S1, S2. Absent: murmur - Routine Abdominal Exam Present: soft, normoactive bowel sounds, non distended. Absent: tenderness - Routine Extremities Exam Present: no edema, normal capillary refill - Routine Skin Exam Present: dry, warm - Routine Neurological Exam Present: alert, moving all extremities, normal speech - Routine Lymphatic Exam Lymphatic: Absent: adenopathy - Routine Psychiatric Exam Present: normal affect Results - Labs CBC & Chem 7: 03/15/17 07:40 03/15/17 07:40 Microbiology Results: Urine culture-Escherichia coli - pansensitive Assessment and Plan (1) Postablative hypothyroidism Current visit: No Status: Chronic (2) Bipolar disorder, unspecified Current visit: Yes Status: Acute (3) Urinary tract infection Current visit: Yes Status: Acute Assessment and Plan: Assessment Delirium Recent UTI - treated with 3 doses of Macrobid Bipolar disorder Hypothyroidism, postablation Plan Case discussed with Dr. Berman. Will check CBC, CMP, free T4 and UA to rule out infection or electrolyte abnormalities which could be contributing to her delirium. Further plan of care to be determined following review of results. Patient discussed with nurse and nursing unit manager. Vital signs, labs, nurse's notes and previous visits were reviewed. Sepsis Assessment - Evaluation Sepsis screening result: No Definite Risk Hospital Course Summary Disclaimer: The visit summary below is not to be considered part of the above Progress Note. Hospital Course: Assessment Delirium Bipolar disorder Asymptomatic bacteruria Hypothyroidism, postablation 03/15/17-hospitalist consult Psychiatric management per Dr. Roy. [place] has been restarted. Recommend routine workup. Asymptomatic bacteruria - will wait to start antibiotics. Follow results of culture. If she becomes symptomatic will start antibiotics. Resume Synthroid ( reports that he didn't think she's been taking her meds for about a month). When she last saw Dr. Tiwari 02/02/17 her TSH was 17.41 and he increased Synthroid to 75 mcg. Today, her TSH is 78.7 - ED MD discussed with Dr. Tiwari who recommended to resume Synthroid at 75 mcg. Recheck TSH in a month. Blood pressure was elevated on 2 of 3 readings since arrival. If this trend continues we may start her on an antihypertensive. Labs reviewed - stable. Mild elevation in AST. Dr. Tiwari's notes reviewed. Awaiting records from Dr. Bañuelos's office. Discussed with Dr. Man and [facility] staff. 03/16/17 18:55 Pt remains tangential and some what disorganized. Increase [place] to 300mg PO BID 03/17/17 12:38 Remains tangential and disorganized. Start Zyprexa 5mg HS 03/18/17 12:36 Remains tangential. Continue current care and encourage pt to take Zyprexa 03/19/17 11:[address] Berman. Will check CBC, CMP, free T4 and UA to rule out infection or electrolyte abnormalities which could be contributing to her delirium. Further plan of care to be determined following review of results. Patient discussed with nurse and nursing unit manager. Vital signs, labs, nurse's notes and previous visits were reviewed.
[2017-03-19] MEDS: POLYETHYL GLYCOL 3350 17gm PACKET PO SCH (11:16)
--- NOTE | 2017-03-19 19:53 | Neuropsych Progress Note ---
[facility] Subjective Date: 03/19/17 - Sujective/Severity of Illness Medications: Aspirin (Ecotrin) 81 mg PO DAILY [facility] Last Admin: 03/19/17 09:46 Dose: 81 mg Glycerin (Sani-Supp) 1 supp RECTALLY PRN PRN PRN Reason: Constipation Last Admin: 03/17/17 18:10 Dose: 1 supp Haloperidol (Haldol) 0.5 mg PO Q6H PRN PRN Reason: Extreme agitation Haloperidol Lactate (Haldol) 0.5 mg IM Q6H PRN PRN Reason: Extreme agitation Levothyroxine Sodium (Synthroid) 75 mcg PO ACB [facility] Last Admin: 03/19/17 06:22 Dose: [address] [place] Carbonate ([place]) 300 mg PO BID [facility] Last Admin: 03/19/17 09:46 Dose: 300 mg Lorazepam (Ativan) 0.5 mg PO Q6H PRN PRN Reason: Extreme agitation Lorazepam (Ativan Inj) 0.5 mg IM Q6H PRN PRN Reason: Extreme agitation Olanzapine (Zyprexa) 5 mg PO [facility] Last Admin: 03/18/17 20:31 Dose: Not Given Ondansetron HCl (Zofran Po) 4 mg PO Q6H PRN PRN Reason: Nausea &/or vomiting Last Admin: 03/18/17 23:02 Dose: 4 mg Polyethylene Glycol (Miralax) 17 gm PO DAILY [facility] Last Admin: 03/19/17 11:16 Dose: Not Given Subjective: Pt seen and chart examined. Nursing reports pt remains tangential but she has been pleasant and no behaviors. Continues to refuse HS Zyprexa. On face to face the pt is pleasant but remains tangential. SHe reports her mood is stable. She denies any S/I or psychosis. She states she would be willing to take the Zyprexa. Tolerating meds Start Time: 17:30 Stop Time: 17:45 Mental Status Exam Vitals: Last Vital Signs Temp 99.6 F 03/19/17 16:17 Pulse 70 03/19/17 16:17 Resp 18 03/19/17 16:17 BP 116/69 03/19/17 16:17 Pulse Ox 96 03/19/17 16:17 Height: 1.57 m Weight: 79.2 kg - Mental Status Exam Muscle Strength/Tone: Normal Dressing: Casual Grooming: Good Attitude: Cooperative Motor Activity: Normal Eye Contact: Fair Speech: Rapid, Pressured Volume: Normal Rhythm: Appropriate Rhythm Orientation: Oriented X4 Mood: Euphoric Rate of Thoughts: Pressured Thought Organization: Disorganized Associations: Flight of Ideas Abstract Reasoning: Poor abstract reasoning Thought Content: Grandeur Perception/Psychotic: Hx psychosis, not current Language: Naming Impaired Fund of Knowledge: Poor fund of knowledge Memory: Poor-immediate Suicidal Ideation: None Homicidal Ideation: None Insight: Poor Judgement: Poor Impulse Control: Poor - Laboratory Result Diagrams: 03/19/17 10:43 03/19/17 10:43 Laboratory Results - last 24 hr 03/19/17 03/19/17 03/19/17 10:43 10:43 16:27 WBC 11.0 RBC 4.54 Hgb 15.0 Hct 44.7 MCV 98.5 MCH 33.0 MCHC 33.6 RDW Std Deviation 51.0 H Plt Count 165 MPV 11.5 Immature Gran % (Auto) Not performed Neut % (Auto) Not performed Lymph % (Auto) Not performed [place] % (Auto) Not performed Eos % (Auto) Not performed Baso % (Auto) Not performed Neut # Not performed Lymph # Not performed [place]ill # Not performed Eos # Not performed Baso # Not performed Abs Immat Gran (auto) Not performed Neutrophils % (Manual) 82.0 H Band Neutrophils % 10.0 H Lymphocytes % (Manual) 7.0 L Monocytes % (Manual) 1.0 Neutrophils # (Manual) 9.0 H Band Neutrophils # 1.1 Lymphocytes # (Manual) 0.8 L Monocytes # (Manual) 0.1 RBC Morph Comment Normal Turbidity < 20 Sodium 140 Potassium 4.0 Chloride 102 Carbon Dioxide 28 Anion Gap 10 BUN 21.0 H Creatinine 1.0 GFR Calculation 54 BUN/Creatinine Ratio 21 Glucose 91 Calculated Osmolality 272 Calcium 9.1 Total Bilirubin 1.20 Icterus Index < 2 AST 24 ALT 35 Alkaline Phosphatase 54 Total Protein 7.0 Albumin 4.1 Globulin 2.9 Albumin/Globulin Ratio 1.4 Specimen Hemolysis < 15 Ur Collection Type Urine, clean catch Urine Color Yellow Urine Clarity Sl cloudy Urine pH 5.5 Ur Specific [place] <=1.005 L Urine Protein Negative Urine Glucose (UA) Negative Urine Ketones Negative Urine Occult Blood Trace-intact Urine Nitrate Negative Urine Bilirubin Negative Urine Urobilinogen 0.2 Ur Leukocyte Esterase 2+ A Urine RBC None seen Urine WBC 5-10 H Ur Squamous Epith Cells 20-50 Urine Bacteria 1+ H Ur Culture Indicated? Cult not indicated Assessment and Plan (1) Severe manic bipolar 1 disorder with psychotic behavior Current visit: Yes Status: Acute (2) Hypothyroidism Qualifiers: Hypothyroidism type: postablative Qualified Code(s): E89.0 - Postprocedural hypothyroidism Current visit: Yes Status: Acute (3) Urinary tract infection Qualifiers: Urinary tract infection type: acute cystitis Hematuria presence: without hematuria Qualified Code(s): N30.00 - Acute cystitis without hematuria Current visit: Yes Status: Acute Hospital Course Summary Disclaimer: The visit summary below is not to be considered part of the above Progress Note. Hospital Course: Assessment Delirium Bipolar disorder Asymptomatic bacteruria Hypothyroidism, postablation 03/15/17-hospitalist consult Psychiatric management per Dr. Roy. [place] has been restarted. Recommend routine workup. Asymptomatic bacteruria - will wait to start antibiotics. Follow results of culture. If she becomes symptomatic will start antibiotics. Resume Synthroid ( reports that he didn't think she's been taking her meds for about a month). When she last saw Dr. Tiwari 02/02/17 her TSH was 17.41 and he increased Synthroid to 75 mcg. Today, her TSH is 78.7 - ED MD discussed with Dr. Tiwari who recommended to resume Synthroid at 75 mcg. Recheck TSH in a month. Blood pressure was elevated on 2 of 3 readings since arrival. If this trend continues we may start her on an antihypertensive. Labs reviewed - stable. Mild elevation in AST. Dr. Tiwari's notes reviewed. Awaiting records from Dr. Bañuelos's office. Discussed with Dr. Man and [facility] staff. 03/16/17 18:55 Pt remains tangential and some what disorganized. Increase [place] to 300mg PO BID 03/17/17 12:38 Remains tangential and disorganized. Start Zyprexa 5mg HS 03/18/17 12:36 Remains tangential. Continue current care and encourage pt to take Zyprexa 03/19/17 11:[address] Berman. Will check CBC, CMP, free T4 and UA to rule out infection or electrolyte abnormalities which could be contributing to her delirium. Further plan of care to be determined following review of results. Patient discussed with nurse and critical care unit nurse. Vital signs, labs, nurse's notes and previous visits were reviewed. 03/19/17 19:52 Pt slowly improving. Will switch Zyprexa to Zydis
[2017-03-19] MEDS: OLANZapine ODT 5 MG TABLET PO SCH (20:14)
[2017-03-20] MEDS: LEVOTHYROXINE 75 MCG TABLET PO SCH (05:57)
--- NOTE | 2017-03-20 08:54 | Progress Note ---
Progress Note: Labs reviewed from yesterday - no concerns. Free T4 pending. UA - reviewed. No indication for further tx with atbx at this time.
[2017-03-20] MEDS: ASPIRIN *EC* 81 MG TABLET PO SCH (09:24)
[2017-03-20] MEDS: POLYETHYL GLYCOL 3350 17gm PACKET PO SCH (09:24)
[2017-03-20] MEDS: LITHIUM CARBONATE 150 MG CAPSULE PO SCH ×3 (09:24→20:39)
--- NOTE | 2017-03-20 19:34 | Neuropsych Progress Note ---
[facility] Subjective Date: 03/20/17 - Sujective/Severity of Illness Medications: Aspirin (Ecotrin) 81 mg PO DAILY [facility] Last Admin: 03/20/17 09:24 Dose: 81 mg Glycerin (Sani-Supp) 1 supp RECTALLY PRN PRN PRN Reason: Constipation Last Admin: 03/17/17 18:10 Dose: 1 supp Haloperidol (Haldol) 0.5 mg PO Q6H PRN PRN Reason: Extreme agitation Haloperidol Lactate (Haldol) 0.5 mg IM Q6H PRN PRN Reason: Extreme agitation Levothyroxine Sodium (Synthroid) 75 mcg PO ACB [facility] Last Admin: 03/20/17 05:57 Dose: 75 mcg [place] Carbonate ([place]) 300 mg PO BID [facility] Last Admin: 03/20/17 09:24 Dose: 300 mg Lorazepam (Ativan) 0.5 mg PO Q6H PRN PRN Reason: Extreme agitation Lorazepam (Ativan Inj) 0.5 mg IM Q6H PRN PRN Reason: Extreme agitation Olanzapine (Zyprexa Zydis) 5 mg PO HS [facility] Last Admin: 03/19/17 20:14 Dose: 5 mg Ondansetron HCl (Zofran Po) 4 mg PO Q6H PRN PRN Reason: Nausea &/or vomiting Last Admin: 03/18/17 23:02 Dose: 4 mg Polyethylene Glycol (Miralax) 17 gm PO DAILY [facility] Last Admin: 03/20/17 09:24 Dose: Not Given Subjective: Pt seen and chart examined. Nursing reports pt has been a little more isolated and less talkative today but has slept well and has a good appetite. On face to face the pt remains some what tangential. She seems to draw special meanings from her kids names and talks about things way in the past and is some what difficult to follow. She states she is doing well and voices no concerns. Did take the Zyprexa and is tolerating it well. Mood is stable Start Time: 17:30 Stop Time: 17:45 Mental Status Exam Vitals: Last Vital Signs Temp 98.8 F 03/20/17 16:00 Pulse 72 03/20/17 16:00 Resp 16 03/20/17 16:00 BP 127/81 03/20/17 16:00 Pulse Ox 94 03/20/17 16:00 Height: 1.57 m Weight: 79.2 kg - Mental Status Exam Muscle Strength/Tone: Normal Dressing: Casual Grooming: Good Attitude: Cooperative Motor Activity: Normal Eye Contact: Fair Speech: Rapid, Pressured Volume: Normal Rhythm: Appropriate Rhythm Orientation: Oriented X4 Mood: Euphoric Rate of Thoughts: Pressured Thought Organization: Disorganized Associations: Flight of Ideas Abstract Reasoning: Poor abstract reasoning Thought Content: Grandeur Perception/Psychotic: Hx psychosis, not current Language: Naming Impaired Fund of Knowledge: Poor fund of knowledge Memory: Poor-immediate Suicidal Ideation: None Homicidal Ideation: None Insight: Poor Judgement: Poor Impulse Control: Poor - Laboratory Result Diagrams: 03/19/17 10:43 03/19/17 10:43 Assessment and Plan (1) Severe manic bipolar 1 disorder with psychotic behavior Current visit: Yes Status: Acute (2) Hypothyroidism Qualifiers: Hypothyroidism type: postablative Qualified Code(s): E89.0 - Postprocedural hypothyroidism Current visit: Yes Status: Acute (3) Urinary tract infection Qualifiers: Urinary tract infection type: acute cystitis Hematuria presence: without hematuria Qualified Code(s): N30.00 - Acute cystitis without hematuria Current visit: Yes Status: Acute Hospital Course Summary Disclaimer: The visit summary below is not to be considered part of the above Progress Note. Hospital Course: Assessment Delirium Bipolar disorder Asymptomatic bacteruria Hypothyroidism, postablation 03/15/17-hospitalist consult Psychiatric management per Dr. Roy. [place] has been restarted. Recommend routine workup. Asymptomatic bacteruria - will wait to start antibiotics. Follow results of culture. If she becomes symptomatic will start antibiotics. Resume Synthroid ( reports that he didn't think she's been taking her meds for about a month). When she last saw Dr. Tiwari 02/02/17 her TSH was 17.41 and he increased Synthroid to 75 mcg. Today, her TSH is 78.7 - ED MD discussed with Dr. Tiwari who recommended to resume Synthroid at 75 mcg. Recheck TSH in a month. Blood pressure was elevated on 2 of 3 readings since arrival. If this trend continues we may start her on an antihypertensive. Labs reviewed - stable. Mild elevation in AST. Dr. Tiwari's notes reviewed. Awaiting records from Dr. Bañuelos's office. Discussed with Dr. Man and [facility] staff. 03/16/17 18:55 Pt remains tangential and some what disorganized. Increase [place] to 300mg PO BID 03/17/17 12:38 Remains tangential and disorganized. Start Zyprexa 5mg HS 03/18/17 12:36 Remains tangential. Continue current care and encourage pt to take Zyprexa 03/19/17 11:[address] Berman. Will check CBC, CMP, free T4 and UA to rule out infection or electrolyte abnormalities which could be contributing to her delirium. Further plan of care to be determined following review of results. Patient discussed with nurse and community relations advisor. Vital signs, labs, nurse's notes and previous visits were reviewed. 03/19/17 19:52 Pt slowly improving. Will switch Zyprexa to Zydis 03/20/17 19:33 Pt remains tangential and disorganized. Continue current care
[2017-03-20] MEDS: OLANZapine ODT 5 MG TABLET PO SCH ×2 (19:39→20:39)
[2017-03-21] MEDS: LEVOTHYROXINE 75 MCG TABLET PO SCH (06:20)
[2017-03-21] MEDS: ASPIRIN *EC* 81 MG TABLET PO SCH ×2 (09:31→17:33)
[2017-03-21] MEDS: LITHIUM CARBONATE 150 MG CAPSULE PO SCH ×2 (09:31→20:50)
[2017-03-21] MEDS: POLYETHYL GLYCOL 3350 17gm PACKET PO SCH ×2 (09:32→19:34)
--- NOTE | 2017-03-21 15:21 | Progress Note ---
Progress Note: Reviewed nurses notes, psych notes, I&O's, vitals and labs. Pt has had 2 loose stools yesterday and several today. GI panel was ordered and contact precautions ordered by psych presumably d/t recent dx of norovirus in several residents on unit. No change in plan of care at this time.
--- NOTE | 2017-03-21 19:54 | Neuropsych Progress Note ---
[facility] Subjective Date: 03/21/17 - Sujective/Severity of Illness Medications: Aspirin (Ecotrin) 81 mg PO DAILY [facility] Last Admin: 03/21/17 17:33 Dose: 81 mg Glycerin (Sani-Supp) 1 supp RECTALLY PRN PRN PRN Reason: Constipation Last Admin: 03/17/17 18:10 Dose: 1 supp Haloperidol (Haldol) 0.5 mg PO Q6H PRN PRN Reason: Extreme agitation Haloperidol Lactate (Haldol) 0.5 mg IM Q6H PRN PRN Reason: Extreme agitation Levothyroxine Sodium (Synthroid) 75 mcg PO ACB [facility] Last Admin: 03/21/17 06:20 Dose: 75 mcg [place] Carbonate ([place]) 300 mg PO BID [facility] Last Admin: 03/21/17 09:31 Dose: 300 mg Lorazepam (Ativan) 0.5 mg PO Q6H PRN PRN Reason: Extreme agitation Lorazepam (Ativan Inj) 0.5 mg IM Q6H PRN PRN Reason: Extreme agitation Olanzapine (Zyprexa Zydis) 5 mg PO HS [facility] Last Admin: 03/20/17 20:39 Dose: Not Given Ondansetron HCl (Zofran Po) 4 mg PO Q6H PRN PRN Reason: Nausea &/or vomiting Last Admin: 03/18/17 23:02 Dose: 4 mg Polyethylene Glycol (Miralax) 17 gm PO DAILY [facility] Last Admin: 03/21/17 19:34 Dose: Not Given Subjective: Patient seen and chart reviewed. Case discussed with treatment team. On interview, patient is pleasant but giggles inappropriately and is hyperverbal with disorganized thoughts and loose associations. Patient did not sleep well last night as she had diarrhea on multiple occasions - GI panel was ordered today and patient tested positive for norovirus so has been in isolation. Patient denies any SI, HI or AVH. Patient denies any adverse side effects related to psychotropic medications. Nursing staff report patient's mood has varied throughout day but she has not had any significant behavioral difficulties. She has complained to them of feeling that Zyprexa Zydis got stuck in her GI tract last night and is still there today, but she did not mention this to me at any time during our interview. Patient slept 6 hours overnight. VSS. Limited appetite. Psychotropic PRNs required in the past 24 hours: none. Start Time: 15:00 Stop Time: 15:20 Mental Status Exam Vitals: Last Vital Signs Temp 98.4 F 03/21/17 16:00 Pulse 80 03/21/17 16:00 Resp 20 03/21/17 16:00 BP 106/71 03/21/17 16:00 Pulse Ox 95 03/21/17 16:00 Height: 1.57 m Weight: 79.2 kg - Mental Status Exam Muscle Strength/Tone: Normal Dressing: Casual Grooming: Good Attitude: Cooperative Motor Activity: Normal Eye Contact: Fair Speech: Rapid, Pressured Volume: Normal Rhythm: Appropriate Rhythm Orientation: Oriented X4 Mood: Euphoric (Affect: manic) Rate of Thoughts: Pressured Thought Organization: Disorganized Associations: Flight of Ideas, Loose-associations Abstract Reasoning: Poor abstract reasoning Thought Content: Grandeur, Somatic Concerns Perception/Psychotic: Hx psychosis, not current Language: Naming Impaired Fund of Knowledge: Poor fund of knowledge Memory: Poor-immediate Suicidal Ideation: Denies Homicidal Ideation: Denies Insight: Poor Judgement: Poor Impulse Control: Poor - Laboratory Result Diagrams: 03/19/17 10:43 03/19/17 10:43 Laboratory Results - last 24 hr 03/19/17 03/21/17 10:43 15:14 Free T4 0.51 L Stl Cyclospora species Negative Stool Rotavirus A PCR Negative Stool Adenovirus (PCR) Negative Stool Astrovirus (PCR) Negative Stool Campylobacter PCR Negative Stl C.difficile Tox PCR Negative Stool Cryptosporidium PCR Negative Stl E.coli Shiga Toxins Negative Stool E coli O157 PCR N/a Stl Enterotoxigenic E PCR Negative Stool EPEC (PCR) Negative Stool EAEC (PCR) Negative Stool Entamoeba (PCR) Negative Stool Giardia Lamblia PCR Negative Stool Salmonella PCR Negative Stool Sapovirus (PCR) Negative Stl P. shigelloides PCR Negative Stl Shigella/EIEC PCR Negative St Y.enterocolitica PCR Negative Stool Vibrio (PCR) Negative Stl Vibrio cholera PCR Negative Stl Norovirus GI/GII PCR Detected A* Assessment and Plan (1) Urinary tract infection Qualifiers: Urinary tract infection type: acute cystitis Hematuria presence: without hematuria Qualified Code(s): N30.00 - Acute cystitis without hematuria Current visit: Yes Status: Acute (2) Hypothyroidism Qualifiers: Hypothyroidism type: postablative Qualified Code(s): E89.0 - Postprocedural hypothyroidism Current visit: Yes Status: Acute (3) 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 Hospital Course: Assessment Delirium Bipolar disorder Asymptomatic bacteruria Hypothyroidism, postablation 03/15/17-hospitalist consult Psychiatric management per Dr. Roy. [place] has been restarted. Recommend routine workup. Asymptomatic bacteruria - will wait to start antibiotics. Follow results of culture. If she becomes symptomatic will start antibiotics. Resume Synthroid ( reports that he didn't think she's been taking her meds for about a month). When she last saw Dr. Tiwari 02/02/17 her TSH was 17.41 and he increased Synthroid to 75 mcg. Today, her TSH is 78.7 - ED MD discussed with Dr. Tiwari who recommended to resume Synthroid at 75 mcg. Recheck TSH in a month. Blood pressure was elevated on 2 of 3 readings since arrival. If this trend continues we may start her on an antihypertensive. Labs reviewed - stable. Mild elevation in AST. Dr. Tiwari's notes reviewed. Awaiting records from Dr. Bañuelos's office. Discussed with Dr. Man and [facility] staff. 03/16/17 18:55 Pt remains tangential and some what disorganized. Increase [place] to 300mg PO BID 03/17/17 12:38 Remains tangential and disorganized. Start Zyprexa 5mg HS 03/18/17 12:36 Remains tangential. Continue current care and encourage pt to take Zyprexa 03/19/17 11:[address] Berman. Will check CBC, CMP, free T4 and UA to rule out infection or electrolyte abnormalities which could be contributing to her delirium. Further plan of care to be determined following review of results. Patient discussed with nurse and digital community manager. Vital signs, labs, nurse's notes and previous visits were reviewed. 03/19/17 19:52 Pt slowly improving. Will switch Zyprexa to Zydis 03/20/17 19:33 Pt remains tangential and disorganized. Continue current care 03/21/17 19:54 Patient tested positive for Norovirus today - will monitor as she progresses through virus and attempt to maintain hydration while on lithium. Continue current care and see if patient is compliant with Zyprexa Zydis tonight. Will plan for Li level and repeat TSH at some point in the near future.
[2017-03-21] MEDS: OLANZapine ODT 5 MG TABLET PO SCH ×2 (20:50→21:06)
[2017-03-22] MEDS: LEVOTHYROXINE 75 MCG TABLET PO SCH (05:53)
--- NOTE | 2017-03-22 10:19 | Progress Note ---
Subjective: Patient is seen in her room lying in her bed. She is currently on contact precautions as she was diagnosed with norovirus yesterday afternoon. She reports she feels well. She does not have much appetite, but is interested in eating cereal. She feels she has "cleaned out" and thinks she will continue to feel well. She denies chest pain, shortness of breath, abdominal pain, and denies any loose stools today so far. Objective Vital signs: Temperature 99.2 F 03/21/17 20:45 Pulse Rate 80 03/21/17 20:45 Respiratory Rate 17 03/21/17 20:45 Blood Pressure 131/76 03/21/17 20:45 Pulse Oximetry 91 03/21/17 20:45 Height/Weight/BMI: Height 1.57 m Weight 79.2 kg Body Mass Index 31.9 - Constitutional Present: no acute distress, well nourished, well developed - Routine Respiratory Exam Present: CTA bilaterally. Absent: wheezes - Routine Cardiovascular Exam Present: RRR, S1, S2, no murmur - Routine Abdominal Exam Present: soft, normoactive bowel sounds, non distended. Absent: tenderness - Routine Extremities Exam Present: no edema, normal capillary refill - Routine Skin Exam Present: dry, warm - Routine Neurological Exam Present: alert, oriented X3 - Routine Lymphatic Exam Lymphatic: Absent: adenopathy - Routine Psychiatric Exam Present: normal affect Results - Labs CBC & Chem 7: 03/22/17 07:01 03/22/17 07:01 Labs: Laboratory Tests 03/21/17 03/22/17 15:14 07:01 Potassium 3.4 L Stl Norovirus GI/GII PCR Detected A* Assessment and Plan (1) Postablative hypothyroidism Current visit: No Status: Chronic (2) Bipolar disorder, unspecified Current visit: Yes Status: Acute (3) Urinary tract infection Current visit: Yes Status: Acute Assessment and Plan: Assessment Norovirus enteritis Acute Hypokalemia Delirium Recent UTI - treated with 3 doses of Macrobid Bipolar disorder Hypothyroidism, postablation Plan She is on contact precautions. This should continue until 48 hours after her last loose stool. Hypokalemia likely related to fluid loss from diarrhea. Will monitor. Expect this to improve without intervention. Patient is interested in eating and drinking at this point Nursing notes, psych note, and labs reviewed. Sepsis Assessment - Evaluation Sepsis screening result: No Definite Risk Hospital Course Summary Disclaimer: The visit summary below is not to be considered part of the above Progress Note. Hospital Course: Assessment Delirium Bipolar disorder Asymptomatic bacteruria Hypothyroidism, postablation 03/15/17-hospitalist consult Psychiatric management per Dr. Roy. [place] has been restarted. Recommend routine workup. Asymptomatic bacteruria - will wait to start antibiotics. Follow results of culture. If she becomes symptomatic will start antibiotics. Resume Synthroid ( reports that he didn't think she's been taking her meds for about a month). When she last saw Dr. Tiwari 02/02/17 her TSH was 17.41 and he increased Synthroid to 75 mcg. Today, her TSH is 78.7 - ED MD discussed with Dr. Tiwari who recommended to resume Synthroid at 75 mcg. Recheck TSH in a month. Blood pressure was elevated on 2 of 3 readings since arrival. If this trend continues we may start her on an antihypertensive. Labs reviewed - stable. Mild elevation in AST. Dr. Tiwari's notes reviewed. Awaiting records from Dr. Bañuelos's office. Discussed with Dr. Man and [facility] staff. 03/16/17 18:55 Pt remains tangential and some what disorganized. Increase [place] to 300mg PO BID 03/17/17 12:38 Remains tangential and disorganized. Start Zyprexa 5mg HS 03/18/17 12:36 Remains tangential. Continue current care and encourage pt to take Zyprexa 03/19/17 11:11 Will check CBC, CMP, free T4 and UA to rule out infection or electrolyte abnormalities which could be contributing to her delirium. Further plan of care to be determined following review of results. 03/19/17 19:52 Pt slowly improving. Will switch Zyprexa to Zydis 03/20/17 19:33 Pt remains tangential and disorganized. Continue current care 03/21/17 19:54 Patient tested positive for Norovirus today - will monitor as she progresses through virus and attempt to maintain hydration while on lithium. Continue current care and see if patient is compliant with Zyprexa Zydis tonight. Will plan for Li level and repeat TSH at some point in the near future. 03/22/17 10:24 She is on contact precautions. This should continue until 48 hours after her last loose stool. Hypokalemia likely related to fluid loss from diarrhea. Will monitor. Expect this to improve without intervention. Patient is interested in eating and drinking at this point
[2017-03-22] MEDS: ASPIRIN *EC* 81 MG TABLET PO SCH (10:28)
[2017-03-22] MEDS: LITHIUM CARBONATE 150 MG CAPSULE PO SCH ×2 (10:28→20:35)
[2017-03-22] MEDS: POLYETHYL GLYCOL 3350 17gm PACKET PO SCH (10:29)
--- NOTE | 2017-03-22 18:28 | Neuropsych Progress Note ---
[facility] Subjective Date: 03/22/17 - Sujective/Severity of Illness Medications: Aspirin (Ecotrin) 81 mg PO DAILY [facility] Last Admin: 03/22/17 10:28 Dose: 81 mg Glycerin (Sani-Supp) 1 supp RECTALLY PRN PRN PRN Reason: Constipation Last Admin: 03/17/17 18:10 Dose: 1 supp Haloperidol (Haldol) 0.5 mg PO Q6H PRN PRN Reason: Extreme agitation Haloperidol Lactate (Haldol) 0.5 mg IM Q6H PRN PRN Reason: Extreme agitation Levothyroxine Sodium (Synthroid) 75 mcg PO ACB [facility] Last Admin: 03/22/17 05:53 Dose: 75 mcg [place] Carbonate ([place]) 300 mg PO BID [facility] Last Admin: 03/22/17 10:28 Dose: 300 mg Lorazepam (Ativan) 0.5 mg PO Q6H PRN PRN Reason: Extreme agitation Lorazepam (Ativan Inj) 0.5 mg IM Q6H PRN PRN Reason: Extreme agitation Olanzapine (Zyprexa Zydis) 5 mg PO HS [facility] Last Admin: 03/21/17 21:06 Dose: Not Given Ondansetron HCl (Zofran Po) 4 mg PO Q6H PRN PRN Reason: Nausea &/or vomiting Last Admin: 03/18/17 23:02 Dose: 4 mg Polyethylene Glycol (Miralax) 17 gm PO DAILY [facility] Last Admin: 03/22/17 10:29 Dose: Not Given Subjective: Patient seen and chart reviewed. Case discussed with treatment team. On interview, patient is pleasant but hyperverbal and after a short time, becomes more disorganized with loose associations. Patient now denies abdominal pain/cramping and reports decreased frequency of diarrhea though is in contact precautions/isolation after testing positive for Norovirus. Patient refused Zyprexa again last night and has given varying reasons why - will attempt to put Zydis in drink this evening. Patient denies any SI, HI or AVH. Patient denies any adverse side effects related to psychotropic medications. Patient slept well overnight. VSS. Fair appetite. Psychotropic PRNs required in the past 24 hours: none. Start Time: 14:40 Stop Time: 15:00 Mental Status Exam Vitals: Last Vital Signs Temp 99.2 F 03/21/17 20:45 Pulse 100 03/22/17 16:00 Resp 16 03/22/17 16:00 BP 124/87 03/22/17 16:00 Pulse Ox 96 03/22/17 16:00 Height: 1.57 m Weight: 78.2 kg - Mental Status Exam Muscle Strength/Tone: Normal Dressing: Casual Grooming: Good Attitude: Cooperative Motor Activity: Normal Eye Contact: Fair Speech: Rapid, Pressured (improving) Volume: Normal Rhythm: Appropriate Rhythm Orientation: Oriented X4 Mood: Euphoric (Affect: manic) Rate of Thoughts: Pressured Thought Organization: Disorganized Associations: Flight of Ideas, Loose-associations Abstract Reasoning: Poor abstract reasoning Thought Content: [place] Perception/Psychotic: Hx psychosis, not current Language: Naming Impaired Fund of Knowledge: Poor fund of knowledge Memory: Poor-immediate Suicidal Ideation: Denies Homicidal Ideation: Denies Insight: Poor Judgement: Poor Impulse Control: Poor - Laboratory Result Diagrams: 03/22/17 07:01 03/22/17 07:01 Laboratory Results - last 24 hr 03/22/17 03/22/17 07:01 07:01 WBC 7.8 RBC 4.51 Hgb 14.7 Hct 43.7 MCV 96.9 MCH 32.6 MCHC 33.6 RDW Std Deviation 49.3 Plt Count 175 MPV 11.7 Immature Gran % (Auto) 0.1 Neut % (Auto) 68.8 H Lymph % (Auto) 24.4 [place] % (Auto) 5.1 Eos % (Auto) 1.0 Baso % (Auto) 0.6 Neut # 5.4 Lymph # 1.9 [place] # 0.4 Eos # 0.1 Baso # 0.1 Abs Immat Gran (auto) 0.01 Turbidity < 20 Sodium 142 Potassium 3.4 L Chloride 110 H D Carbon Dioxide 24 Anion Gap 8 BUN 15.0 Creatinine 0.9 GFR Calculation 61 BUN/Creatinine Ratio 17 Glucose 88 Calculated Osmolality 273 Calcium 8.7 Icterus Index < 2 Specimen Hemolysis 26 H Assessment and Plan (1) Urinary tract infection Qualifiers: Urinary tract infection type: acute cystitis Hematuria presence: without hematuria Qualified Code(s): N30.00 - Acute cystitis without hematuria Current visit: Yes Status: Acute (2) Hypothyroidism Qualifiers: Hypothyroidism type: postablative Qualified Code(s): E89.0 - Postprocedural hypothyroidism Current visit: Yes Status: Acute (3) 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 Hospital Course: Assessment Delirium Bipolar disorder Asymptomatic bacteruria Hypothyroidism, postablation 03/15/17-hospitalist consult Psychiatric management per Dr. Roy. [place] has been restarted. Recommend routine workup. Asymptomatic bacteruria - will wait to start antibiotics. Follow results of culture. If she becomes symptomatic will start antibiotics. Resume Synthroid ( reports that he didn't think she's been taking her meds for about a month). When she last saw Dr. Tiwari 02/02/17 her TSH was 17.41 and he increased Synthroid to 75 mcg. Today, her TSH is 78.7 - ED MD discussed with Dr. Tiwari who recommended to resume Synthroid at 75 mcg. Recheck TSH in a month. Blood pressure was elevated on 2 of 3 readings since arrival. If this trend continues we may start her on an antihypertensive. Labs reviewed - stable. Mild elevation in AST. Dr. Tiwari's notes reviewed. Awaiting records from Dr. Bañuelos's office. Discussed with Dr. Man and [facility] staff. 03/16/17 18:55 Pt remains tangential and some what disorganized. Increase [place] to 300mg PO BID 03/17/17 12:38 Remains tangential and disorganized. Start Zyprexa 5mg HS 03/18/17 12:36 Remains tangential. Continue current care and encourage pt to take Zyprexa 03/19/17 11:11 Will check CBC, CMP, free T4 and UA to rule out infection or electrolyte abnormalities which could be contributing to her delirium. Further plan of care to be determined following review of results. 03/19/17 19:52 Pt slowly improving. Will switch Zyprexa to Zydis 03/20/17 19:33 Pt remains tangential and disorganized. Continue current care 03/21/17 19:54 Patient tested positive for Norovirus today - will monitor as she progresses through virus and attempt to maintain hydration while on lithium. Continue current care and see if patient is compliant with Zyprexa Zydis tonight. Will plan for Li level and repeat TSH at some point in the near future. 03/22/17 10:24 She is on contact precautions. This should continue until 48 hours after her last loose stool. Hypokalemia likely related to fluid loss from diarrhea. Will monitor. Expect this to improve without intervention. Patient is interested in eating and drinking at this point 03/22/17 18:27 Psych: Patient continues to be manic and refused Zyprexa last night. Continue current medications - will add Zydis to drink this evening which will hopefully improve compliance. Will plan for Li level and repeat TSH at some point in the near future.
[2017-03-22] MEDS: OLANZapine ODT 5 MG TABLET PO SCH (20:35)
[2017-03-22] MEDS ORDERED: ACETAMINOPHEN 325 MG TABLET PO PRN (20:49)
[2017-03-23] MEDS: LEVOTHYROXINE 75 MCG TABLET PO SCH (05:45)
[2017-03-23] MEDS ORDERED: ACETAMINOPHEN 325 MG TABLET PO ONE (07:00)
[2017-03-23] MEDS: LITHIUM CARBONATE 150 MG CAPSULE PO SCH ×2 (10:30→20:42)
[2017-03-23] MEDS: ASPIRIN *EC* 81 MG TABLET PO SCH ×2 (10:30→13:17)
[2017-03-23] MEDS: POLYETHYL GLYCOL 3350 17gm PACKET PO SCH (11:04)
--- NOTE | 2017-03-23 20:27 | Neuropsych Progress Note ---
[facility] Subjective Date: 03/23/17 - Sujective/Severity of Illness Medications: Aspirin (Ecotrin) 81 mg PO DAILY [facility] Last Admin: 03/23/17 13:17 Dose: 81 mg Glycerin (Sani-Supp) 1 supp RECTALLY PRN PRN PRN Reason: Constipation Last Admin: 03/17/17 18:10 Dose: 1 supp Haloperidol (Haldol) 0.5 mg PO Q6H PRN PRN Reason: Extreme agitation Haloperidol Lactate (Haldol) 0.5 mg IM Q6H PRN PRN Reason: Extreme agitation Levothyroxine Sodium (Synthroid) 75 mcg PO ACB [facility] Last Admin: 03/23/17 05:45 Dose: 75 mcg [place] Carbonate ([place]) 300 mg PO BID [facility] Last Admin: 03/23/17 10:30 Dose: 300 mg Lorazepam (Ativan) 0.5 mg PO Q6H PRN PRN Reason: Extreme agitation Lorazepam (Ativan Inj) 0.5 mg IM Q6H PRN PRN Reason: Extreme agitation Olanzapine (Zyprexa Zydis) 5 mg PO HS [facility] Last Admin: 03/22/17 20:35 Dose: 5 mg Ondansetron HCl (Zofran Po) 4 mg PO Q6H PRN PRN Reason: Nausea &/or vomiting Last Admin: 03/18/17 23:02 Dose: 4 mg Polyethylene Glycol (Miralax) 17 gm PO DAILY [facility] Last Admin: 03/23/17 11:04 Dose: Not Given Subjective: Patient seen and chart reviewed. Case discussed with treatment team. On interview, patient is pleasant but hyperverbal, though she seems to be slightly more organized today - continues to be very circumstantial and giggles frequently. Patient now denies abdominal pain/cramping and reports decreased frequency of diarrhea though is in contact precautions/isolation after testing positive for Norovirus. Patient drank Zyprexa last night dissolved in her dinner drink. Patient denies any SI, HI or AVH. Patient denies any adverse side effects related to psychotropic medications. Nursing staff report patient has been cooperative overall and adherent with medications. Patient slept well overnight. VSS. Fair appetite - improving after viral illness. Psychotropic PRNs required in the past 24 hours: none. Start Time: 16:40 Stop Time: 17:00 Mental Status Exam Vitals: Last Vital Signs Temp 98 F 09/15/17 16:00 Pulse 76 03/23/17 16:00 Resp 16 03/23/17 16:00 BP 111/72 03/23/17 16:00 Pulse Ox 94 03/23/17 16:00 Height: 1.57 m Weight: 78.2 kg - Mental Status Exam Muscle Strength/Tone: Normal Dressing: Casual Grooming: Good Attitude: Cooperative Motor Activity: Normal Eye Contact: Fair Speech: Rapid, Pressured (improving) Volume: Normal Rhythm: Appropriate Rhythm Orientation: Oriented X4 Mood: Euphoric (Affect: manic) Rate of Thoughts: Pressured Thought Organization: Circumstantial Associations: Flight of Ideas, Loose-associations Abstract Reasoning: Poor abstract reasoning Thought Content: Normal (Giggles frequently) Perception/Psychotic: Hx psychosis, not current Language: Naming Intact Fund of Knowledge: Other (Decreased) Memory: Poor-immediate Suicidal Ideation: Denies Homicidal Ideation: Denies Insight: Limited Judgement: Limited Impulse Control: Fair - Laboratory Result Diagrams: 03/22/17 07:01 03/23/17 07:44 Laboratory Results - last 24 hr 03/23/17 07:44 Turbidity < 20 Sodium 141 Potassium 3.4 L Chloride 110 H Carbon Dioxide 25 Anion Gap 6 BUN 15.0 Creatinine 0.8 GFR Calculation 70 BUN/Creatinine Ratio 19 Glucose 84 Calculated Osmolality 271 Calcium 8.9 Icterus Index < 2 Specimen Hemolysis < 15 Specimen Comment Lab to recollect Tests Not Done Cmp Reason Tests Not Done Hemolyzed specimen Assessment and Plan (1) Urinary tract infection Qualifiers: Urinary tract infection type: acute cystitis Hematuria presence: without hematuria Qualified Code(s): N30.00 - Acute cystitis without hematuria Current visit: Yes Status: Acute (2) Hypothyroidism Qualifiers: Hypothyroidism type: postablative Qualified Code(s): E89.0 - Postprocedural hypothyroidism Current visit: Yes Status: Acute (3) 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 Hospital Course: Assessment Delirium Bipolar disorder Asymptomatic bacteruria Hypothyroidism, postablation 03/15/17-hospitalist consult Psychiatric management per Dr. Roy. [place] has been restarted. Recommend routine workup. Asymptomatic bacteruria - will wait to start antibiotics. Follow results of culture. If she becomes symptomatic will start antibiotics. Resume Synthroid ( reports that he didn't think she's been taking her meds for about a month). When she last saw Dr. Tiwari 02/02/17 her TSH was 17.41 and he increased Synthroid to 75 mcg. Today, her TSH is 78.7 - ED MD discussed with Dr. Tiwari who recommended to resume Synthroid at 75 mcg. Recheck TSH in a month. Blood pressure was elevated on 2 of 3 readings since arrival. If this trend continues we may start her on an antihypertensive. Labs reviewed - stable. Mild elevation in AST. Dr. Tiwari's notes reviewed. Awaiting records from Dr. Bañuelos's office. Discussed with Dr. Man and [facility] staff. 03/16/17 18:55 Pt remains tangential and some what disorganized. Increase Jun[place] to 300mg PO BID 03/17/17 12:38Psy Remains tangential and disorganized. Start Zyprexa 5mg HS 03/18/17 12:36 Remains tangential. Continue current care and encourage pt to take Zyprexa 03/19/17 11:11 Will check CBC, CMP, free T4 and UA to rule out infection or electrolyte abnormalities which could be contributing to her delirium. Further plan of care to be determined following review of results. 03/19/17 19:52 Pt slowly improving. Will switch Zyprexa to Zydis 03/20/17 19:33 Pt remains tangential and disorganized. Continue current care 03/21/17 19:54 Patient tested positive for Norovirus today - will monitor as she progresses through virus and attempt to maintain hydration while on lithium. Continue current care and see if patient is compliant with Zyprexa Zydis tonight. Will plan for Li level and repeat TSH at some point in the near future. 03/22/17 10:24 She is on contact precautions. This should continue until 48 hours after her last loose stool. Hypokalemia likely related to fluid loss from diarrhea. Will monitor. Expect this to improve without intervention. Patient is interested in eating and drinking at this point 03/22/17 18:27 Psych: Patient continues to be manic and refused Zyprexa last night. Continue current medications - will add Zydis to drink this evening which will hopefully improve compliance. Will plan for Li level and repeat TSH at some point in the near future. 03/23/17 20:28 Psych: Patient continues to be hypomanic though improving slightly. Continue Juncal and Zyprexa in drink over the weekend - will discuss with patient on Sunday as she will have to be willing to take the medication after discharge. Will need home health services for assistance with medication management after discharge.
[2017-03-23] MEDS: OLANZapine ODT 5 MG TABLET PO SCH (20:41)
[2017-03-24] MEDS: LEVOTHYROXINE 75 MCG TABLET PO SCH (05:30)
[2017-03-24] MEDS: LITHIUM CARBONATE 150 MG CAPSULE PO SCH ×2 (08:43→20:43)
[2017-03-24] MEDS: POLYETHYL GLYCOL 3350 17gm PACKET PO SCH (08:43)
[2017-03-24] MEDS: ASPIRIN *EC* 81 MG TABLET PO SCH (08:43)
[2017-03-24] MEDS: OLANZapine ODT 5 MG TABLET PO SCH (20:43)
--- NOTE | 2017-03-24 20:57 | Neuropsych Progress Note ---
[facility] Subjective Date: 03/24/17 - Sujective/Severity of Illness Medications: Aspirin (Ecotrin) 81 mg PO DAILY [facility] Last Admin: 03/24/17 08:43 Dose: 81 mg Glycerin (Sani-Supp) 1 supp RECTALLY PRN PRN PRN Reason: Constipation Last Admin: 03/17/17 18:10 Dose: 1 supp Haloperidol (Haldol) 0.5 mg PO Q6H PRN PRN Reason: Extreme agitation Haloperidol Lactate (Haldol) 0.5 mg IM Q6H PRN PRN Reason: Extreme agitation Levothyroxine Sodium (Synthroid) 75 mcg PO ACB [facility] Last Admin: 03/24/17 05:30 Dose: 75 mcg [place] Carbonate ([place]) 300 mg PO BID [facility] Last Admin: 03/24/17 20:43 Dose: 300 mg Lorazepam (Ativan) 0.5 mg PO Q6H PRN PRN Reason: Extreme agitation Lorazepam (Ativan Inj) 0.5 mg IM Q6H PRN PRN Reason: Extreme agitation Olanzapine (Zyprexa Zydis) 5 mg PO HS [facility] Last Admin: 03/24/17 20:43 Dose: 5 mg Ondansetron HCl (Zofran Po) 4 mg PO Q6H PRN PRN Reason: Nausea &/or vomiting Last Admin: 03/18/17 23:02 Dose: 4 mg Polyethylene Glycol (Miralax) 17 gm PO DAILY [facility] Last Admin: 03/24/17 08:43 Dose: 17 gm Subjective: Patient seen and chart reviewed. Case discussed with treatment team. On interview, patient is pleasant but hyperverbal, though she seems to be slightly more organized today - continues to be very circumstantial, hypomanic and have loose associations at times. Patient now denies abdominal pain/ cramping and reports decreased frequency of diarrhea though is in contact precautions/isolation after testing positive for Norovirus. Patient drank Zyprexa past 2 nights dissolved in her dinner drink - will discuss with her Sunday as she has to be willing to take this medication at home prior to discharge - I do believe it is helpful in controlling manic symptoms. . Patient denies any SI, HI or AVH. Patient denies any adverse side effects related to psychotropic medications. Nursing staff report patient has been cooperative overall and adherent with medications. Patient slept 7.5 hours overnight. VSS. Fair appetite - improving after viral illness. Psychotropic PRNs required in the past 24 hours: none. Start Time: 11:40 Stop Time: 12:00 Mental Status Exam Vitals: Last Vital Signs Temp 97.7 F 03/24/17 16:00 Pulse 85 03/24/17 16:00 Resp 18 03/24/17 16:00 BP 121/79 03/24/17 16:00 Pulse Ox 91 03/24/17 16:00 Height: 1.57 m Weight: 78.2 kg - Mental Status Exam Muscle Strength/Tone: Normal Dressing: Casual Grooming: Good Attitude: Cooperative Motor Activity: Normal Eye Contact: Fair Speech: Other (Improving, slower than previously - continues to be mildly hyperverbal) Volume: Normal Rhythm: Appropriate Rhythm Orientation: Oriented X4 Mood: Euphoric (Affect: hypomanic, improving) Rate of Thoughts: Pressured (improving) Thought Organization: Circumstantial Associations: Loose-associations Abstract Reasoning: Poor abstract reasoning Thought Content: Normal (Giggles frequently) Perception/Psychotic: Hx psychosis, not current Language: Naming Intact Fund of Knowledge: Other (Decreased) Memory: Poor-immediate Suicidal Ideation: Denies Homicidal Ideation: Denies Insight: Limited Judgement: Limited Impulse Control: Fair - Laboratory Result Diagrams: 03/22/17 07:01 03/23/17 07:44 Assessment and Plan (1) Urinary tract infection Qualifiers: Urinary tract infection type: acute cystitis Hematuria presence: without hematuria Qualified Code(s): N30.00 - Acute cystitis without hematuria Current visit: Yes Status: Acute (2) Hypothyroidism Qualifiers: Hypothyroidism type: postablative Qualified Code(s): E89.0 - Postprocedural hypothyroidism Current visit: Yes Status: Acute (3) 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 Hospital Course: Assessment Delirium Bipolar disorder Asymptomatic bacteruria Hypothyroidism, postablation 03/15/17-hospitalist consult Psychiatric management per Dr. Roy. [place] has been restarted. Recommend routine workup. Asymptomatic bacteruria - will wait to start antibiotics. Follow results of culture. If she becomes symptomatic will start antibiotics. Resume Synthroid ( reports that he didn't think she's been taking her meds for about a month). When she last saw Dr. Tiwari 02/02/17 her TSH was 17.41 and he increased Synthroid to 75 mcg. Today, her TSH is 78.7 - ED MD discussed with Dr. Tiwari who recommended to resume Synthroid at 75 mcg. Recheck TSH in a month. Blood pressure was elevated on 2 of 3 readings since arrival. If this trend continues we may start her on an antihypertensive. Labs reviewed - stable. Mild elevation in AST. Dr. Tiwari's notes reviewed. Awaiting records from Dr. Bañuelos's office. Discussed with Dr. Man and [facility] staff. 03/16/17 18:55 Pt remains tangential and some what disorganized. Increase [place] to 300mg PO BID 03/17/17 12:38Psy Remains tangential and disorganized. Start Zyprexa 5mg HS 03/18/17 12:36 Remains tangential. Continue current care and encourage pt to take Zyprexa 03/19/17 11:11 Will check CBC, CMP, free T4 and UA to rule out infection or electrolyte abnormalities which could be contributing to her delirium. Further plan of care to be determined following review of results. 03/19/17 19:52 Pt slowly improving. Will switch Zyprexa to Zydis 03/20/17 19:33 Pt remains tangential and disorganized. Continue current care 03/21/17 19:54 Patient tested positive for Norovirus today - will monitor as she progresses through virus and attempt to maintain hydration while on lithium. Continue current care and see if patient is compliant with Zyprexa Zydis tonight. Will plan for Li level and repeat TSH at some point in the near future. 03/22/17 10:24 She is on contact precautions. This should continue until 48 hours after her last loose stool. Hypokalemia likely related to fluid loss from diarrhea. Will monitor. Expect this to improve without intervention. Patient is interested in eating and drinking at this point 03/22/17 18:27 Psych: Patient continues to be manic and refused Zyprexa last night. Continue current medications - will add Zydis to drink this evening which will hopefully improve compliance. Will plan for Li level and repeat TSH at some point in the near future. 03/23/17 20:28 Psych: Patient continues to be hypomanic though improving slightly. Continue [place] and Zyprexa in drink over the weekend - will discuss with patient on Sunday as she will have to be willing to take the medication after discharge. Will need home health services for assistance with medication management after discharge. 03/24/17 20:56 Psych: Continue current care, allowing Zyprexa time to take effect. Still plan to discuss treatment regimen with her on Sunday as above. Patient will hopefully be off contact precautions tonight. Will plan for Li level, TSH on Sunday AM.
[2017-03-25] MEDS: LEVOTHYROXINE 75 MCG TABLET PO SCH (06:14)
[2017-03-25] MEDS: LITHIUM CARBONATE 150 MG CAPSULE PO SCH ×2 (10:01→19:35)
[2017-03-25] MEDS: POLYETHYL GLYCOL 3350 17gm PACKET PO SCH (10:01)
[2017-03-25] MEDS: ASPIRIN *EC* 81 MG TABLET PO SCH (10:01)
--- NOTE | 2017-03-25 15:56 | Progress Note ---
Subjective: Brielle is seen today in follow up. She is feeling well. In good spirits, joking around. No c/o. Chart is reviewed for collateral information. Mood/behaviors are improving. No acute s/sx hyun today. Taking meds more frequently. Objective Vital signs: Temperature 97.2 F 03/25/17 08:00 Pulse Rate 85 03/25/17 08:00 Respiratory Rate 16 03/25/17 08:00 Blood Pressure 126/82 03/25/17 08:00 Pulse Oximetry 98 03/25/17 08:00 Height/Weight/BMI: Height 1.57 m Weight 78.2 kg Body Mass Index 31.9 - Constitutional Present: no acute distress, well nourished, well developed, cooperative - Routine HEENT Exam Head: Present: normocephalic, atraumatic Eye: Present: EOMI, PERRL, normal accommodation ENT: Present: mucous membranes moist - Routine Respiratory Exam Present: CTA bilaterally. Absent: dyspnea, rhonchi, stridor, crackles - Routine Cardiovascular Exam Present: RRR, S1, S2, no murmur - Routine Abdominal Exam Present: soft, normoactive bowel sounds, non distended, non tender - Routine Extremities Exam Present: no edema, non tender, full ROM - Routine Back/Spine/Pelvis Exam Back/Spine: Present: full ROM - Routine Musculoskeletal Exam Musculoskeletal: Present: no clubbing or cyanosis, normal strength - Routine Skin Exam Present: intact, dry, warm - Routine Neurological Exam Present: alert, moving all extremities - Routine Psychiatric Exam Present: cooperative Results - Labs CBC & Chem 7: 03/22/17 07:01 03/23/17 07:44 Assessment and Plan (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 Diarrhea resolved. No GI c/o. s/p treatment for UTI- no urinary sx reported. Potassium continues low- will add low dose KCL daily. Plan recheck labs in AM for stability. Continue synthroid. Vitals look good. - Time spent with patient 25 - 35 minutes Sepsis Assessment - Evaluation Sepsis screening result: No Definite Risk Hospital Course Summary Disclaimer: The visit summary below is not to be considered part of the above Progress Note. Hospital Course: Assessment Delirium Bipolar disorder Asymptomatic bacteruria Hypothyroidism, postablation 03/15/17-hospitalist consult Psychiatric management per Dr. Roy. [place] has been restarted. Recommend routine workup. Asymptomatic bacteruria - will wait to start antibiotics. Follow results of culture. If she becomes symptomatic will start antibiotics. Resume Synthroid ( reports that he didn't think she's been taking her meds for about a month). When she last saw Dr. Tiwari 02/02/17 her TSH was 17.41 and he increased Synthroid to 75 mcg. Today, her TSH is 78.7 - ED MD discussed with Dr. Tiwari who recommended to resume Synthroid at 75 mcg. Recheck TSH in a month. Blood pressure was elevated on 2 of 3 readings since arrival. If this trend continues we may start her on an antihypertensive. Labs reviewed - stable. Mild elevation in AST. Dr. Tiwari's notes reviewed. Awaiting records from Dr. Bañuelos's office. Discussed with Dr. Man and [facility] staff. 03/16/17 18:55 Pt remains tangential and some what disorganized. Increase [place] to 300mg PO BID 03/17/17 12:38Psy Remains tangential and disorganized. Start Zyprexa 5mg HS 03/18/17 12:36 Remains tangential. Continue current care and encourage pt to take Zyprexa 03/19/17 11:11 Will check CBC, CMP, free T4 and UA to rule out infection or electrolyte abnormalities which could be contributing to her delirium. Further plan of care to be determined following review of results. 03/19/17 19:52 Pt slowly improving. Will switch Zyprexa to Zydis 03/20/17 19:33 Pt remains tangential and disorganized. Continue current care 03/21/17 19:54 Patient tested positive for Norovirus today - will monitor as she progresses through virus and attempt to maintain hydration while on lithium. Continue current care and see if patient is compliant with Zyprexa Zydis tonight. Will plan for Li level and repeat TSH at some point in the near future. 03/22/17 10:24 She is on contact precautions. This should continue until 48 hours after her last loose stool. Hypokalemia likely related to fluid loss from diarrhea. Will monitor. Expect this to improve without intervention. Patient is interested in eating and drinking at this point 03/22/17 18:27 Psych: Patient continues to be manic and refused Zyprexa last night. Continue current medications - will add Zydis to drink this evening which will hopefully improve compliance. Will plan for Li level and repeat TSH at some point in the near future. 03/23/17 20:28 Psych: Patient continues to be hypomanic though improving slightly. Continue [place] and Zyprexa in drink over the weekend - will discuss with patient on Sunday as she will have to be willing to take the medication after discharge. Will need home health services for assistance with medication management after discharge. 03/24/17 20:56 Psych: Continue current care, allowing Zyprexa time to take effect. Still plan to discuss treatment regimen with her on Sunday as above. Patient will hopefully be off contact precautions tonight. Will plan for Li level, TSH on Sunday AM. 03/25/17 15:56 Patient continues to improve. Diarrhea resolved. No GI c/o. s/p treatment for UTI- no urinary sx reported. Potassium continues low- will add low dose KCL daily. Plan recheck labs in AM for stability. Continue synthroid. Vitals look good.
[2017-03-25] MEDS: OLANZapine ODT 5 MG TABLET PO SCH (19:35)
--- NOTE | 2017-03-25 19:38 | Neuropsych Progress Note ---
[facility] Subjective Date: 03/25/17 - Sujective/Severity of Illness Medications: Aspirin (Ecotrin) 81 mg PO DAILY [facility] Last Admin: 03/25/17 10:01 Dose: 81 mg Glycerin (Sani-Supp) 1 supp RECTALLY PRN PRN PRN Reason: Constipation Last Admin: 03/17/17 18:10 Dose: 1 supp Haloperidol (Haldol) 0.5 mg PO Q6H PRN PRN Reason: Extreme agitation Haloperidol Lactate (Haldol) 0.5 mg IM Q6H PRN PRN Reason: Extreme agitation Levothyroxine Sodium (Synthroid) 75 mcg PO ACB [facility] Last Admin: 03/25/17 06:14 Dose: 75 mcg [place] Carbonate ([place]) 300 mg PO BID [facility] Last Admin: 03/25/17 10:01 Dose: 300 mg Lorazepam (Ativan) 0.5 mg PO Q6H PRN PRN Reason: Extreme agitation Lorazepam (Ativan Inj) 0.5 mg IM Q6H PRN PRN Reason: Extreme agitation Olanzapine (Zyprexa Zydis) 5 mg PO HS [facility] Last Admin: 03/24/17 20:43 Dose: 5 mg Ondansetron HCl (Zofran Po) 4 mg PO Q6H PRN PRN Reason: Nausea &/or vomiting Last Admin: 03/18/17 23:02 Dose: 4 mg Polyethylene Glycol (Miralax) 17 gm PO DAILY [facility] Last Admin: 03/25/17 10:01 Dose: Not Given Potassium Chloride (K-Dur) 10 meq PO WB [facility] Last Admin: 03/25/17 17:25 Dose: 10 meq Subjective: Patient seen and chart reviewed. Case discussed with treatment team. On interview, patient is pleasant but hyperverbal, though she seems to be slightly more organized today - continues to be very circumstantial, hypomanic and have loose associations at times. She gives me a written-out paper trying to make sense of her medications and had a question for me but I could never quite understand what she was asking. Now out of contact precautions and reports she feels well physically. Patient drank Zyprexa past 3 nights dissolved in her dinner drink - will discuss with her Sunday as she has to be willing to take this medication at home prior to discharge - I do believe it is helpful in controlling manic symptoms. . Patient denies any SI, HI or AVH. Patient denies any adverse side effects related to psychotropic medications. Nursing staff report patient has been cooperative overall and adherent with medications. Patient slept 7.25 hours overnight. VSS. Fair appetite - improving after viral illness. Psychotropic PRNs required in the past 24 hours: none. Start Time: 11:40 Stop Time: 12:00 Mental Status Exam Vitals: Last Vital Signs Temp 98.3 F 03/25/17 16:00 Pulse 73 03/25/17 16:00 Resp 16 03/25/17 16:00 BP 130/84 03/25/17 16:00 Pulse Ox 95 03/25/17 16:00 Height: 1.57 m Weight: 78.2 kg - Mental Status Exam Muscle Strength/Tone: Normal Dressing: Casual Grooming: Good Attitude: Cooperative Motor Activity: Normal Eye Contact: Fair Speech: Other (Improving, slower than previously - continues to be mildly hyperverbal) Volume: Normal Rhythm: Appropriate Rhythm Orientation: Oriented X4 Mood: Euphoric (Affect: hypomanic, improving) Rate of Thoughts: Pressured (improving) Thought Organization: Circumstantial Associations: Loose-associations Abstract Reasoning: Poor abstract reasoning Thought Content: Normal (Giggles frequently) Perception/Psychotic: Hx psychosis, not current Language: Naming Intact Fund of Knowledge: Other (Decreased) Memory: Poor-immediate Suicidal Ideation: Denies Homicidal Ideation: Denies Insight: Limited Judgement: Limited Impulse Control: Fair - Laboratory Result Diagrams: 03/22/17 07:01 03/23/17 07:44 Assessment and Plan (1) Urinary tract infection Qualifiers: Urinary tract infection type: acute cystitis Hematuria presence: without hematuria Qualified Code(s): N30.00 - Acute cystitis without hematuria Current visit: Yes Status: Acute (2) Hypothyroidism Qualifiers: Hypothyroidism type: postablative Qualified Code(s): E89.0 - Postprocedural hypothyroidism Current visit: Yes Status: Acute (3) 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 Hospital Course: Assessment Delirium Bipolar disorder Asymptomatic bacteruria Hypothyroidism, postablation 03/15/17-hospitalist consult Psychiatric management per Dr. Roy. [place] has been restarted. Recommend routine workup. Asymptomatic bacteruria - will wait to start antibiotics. Follow results of culture. If she becomes symptomatic will start antibiotics. Resume Synthroid ( reports that he didn't think she's been taking her meds for about a month). When she last saw Dr. Tiwari 02/02/17 her TSH was 17.41 and he increased Synthroid to 75 mcg. Today, her TSH is 78.7 - ED MD discussed with Dr. Tiwari who recommended to resume Synthroid at 75 mcg. Recheck TSH in a month. Blood pressure was elevated on 2 of 3 readings since arrival. If this trend continues we may start her on an antihypertensive. Labs reviewed - stable. Mild elevation in AST. Dr. Tiwari's notes reviewed. Awaiting records from Dr. Bañuelos's office. Discussed with Dr. Man and [facility] staff. 03/16/17 18:55 Pt remains tangential and some what disorganized. Increase [place] to 300mg PO BID 03/17/17 12:38Psy Remains tangential and disorganized. Start Zyprexa 5mg HS 03/18/17 12:36 Remains tangential. Continue current care and encourage pt to take Zyprexa 03/19/17 11:11 Will check CBC, CMP, free T4 and UA to rule out infection or electrolyte abnormalities which could be contributing to her delirium. Further plan of care to be determined following review of results. 03/19/17 19:52 Pt slowly improving. Will switch Zyprexa to Zydis 03/20/17 19:33 Pt remains tangential and disorganized. Continue current care 03/21/17 19:54 Patient tested positive for Norovirus today - will monitor as she progresses through virus and attempt to maintain hydration while on lithium. Continue current care and see if patient is compliant with Zyprexa Zydis tonight. Will plan for Li level and repeat TSH at some point in the near future. 03/22/17 10:24 She is on contact precautions. This should continue until 48 hours after her last loose stool. Hypokalemia likely related to fluid loss from diarrhea. Will monitor. Expect this to improve without intervention. Patient is interested in eating and drinking at this point 03/22/17 18:27 Psych: Patient continues to be manic and refused Zyprexa last night. Continue current medications - will add Zydis to drink this evening which will hopefully improve compliance. Will plan for Li level and repeat TSH at some point in the near future. 03/23/17 20:28 Psych: Patient continues to be hypomanic though improving slightly. Continue [place] and Zyprexa in drink over the weekend - will discuss with patient on Sunday as she will have to be willing to take the medication after discharge. Will need home health services for assistance with medication management after discharge. 03/24/17 20:56 Psych: Continue current care, allowing Zyprexa time to take effect. Still plan to discuss treatment regimen with her on Sunday as above. Patient will hopefully be off contact precautions tonight. Will plan for Li level, TSH on Sunday AM. 03/25/17 15:56 Patient continues to improve. Diarrhea resolved. No GI c/o. s/p treatment for UTI- no urinary sx reported. Potassium continues low- will add low dose KCL daily. Plan recheck labs in AM for stability. Continue synthroid. Vitals look good. 03/25/17 19:37 Psych: Continue current care - will discuss addition of Zyprexa with patient tomorrow. Will check Li level, TSH in AM along with labs from hospitalist.
[2017-03-26] MEDS: OLANZapine ODT 5 MG TABLET PO SCH ×2 (00:49→20:16)
[2017-03-26] MEDS: LITHIUM CARBONATE 150 MG CAPSULE PO SCH ×3 (00:49→20:16)
[2017-03-26] MEDS: LEVOTHYROXINE 75 MCG TABLET PO SCH (05:34)
[2017-03-26] MEDS: ASPIRIN *EC* 81 MG TABLET PO SCH (09:14)
[2017-03-26] MEDS: POLYETHYL GLYCOL 3350 17gm PACKET PO SCH (09:15)
--- NOTE | 2017-03-26 20:51 | Neuropsych Progress Note ---
[facility] Subjective Date: 03/27/17 - Sujective/Severity of Illness Medications: Aspirin (Ecotrin) 81 mg PO DAILY [facility] Last Admin: 03/26/17 09:14 Dose: 81 mg Glycerin (Sani-Supp) 1 supp RECTALLY PRN PRN PRN Reason: Constipation Last Admin: 03/17/17 18:10 Dose: 1 supp Haloperidol (Haldol) 0.5 mg PO Q6H PRN PRN Reason: Extreme agitation Haloperidol Lactate (Haldol) 0.5 mg IM Q6H PRN PRN Reason: Extreme agitation Levothyroxine Sodium (Synthroid) 75 mcg PO ACB [facility] Last Admin: 03/26/17 05:34 Dose: 75 mcg [place] Carbonate ([place]) 300 mg PO BID [facility] Last Admin: 03/26/17 20:16 Dose: 300 mg Lorazepam (Ativan) 0.5 mg PO Q6H PRN PRN Reason: Extreme agitation Lorazepam (Ativan Inj) 0.5 mg IM Q6H PRN PRN Reason: Extreme agitation Olanzapine (Zyprexa Zydis) 5 mg PO HS [facility] Last Admin: 03/26/17 20:16 Dose: 5 mg Ondansetron HCl (Zofran Po) 4 mg PO Q6H PRN PRN Reason: Nausea &/or vomiting Last Admin: 03/18/17 23:02 Dose: 4 mg Polyethylene Glycol (Miralax) 17 gm PO DAILY [facility] Last Admin: 03/26/17 09:15 Dose: 17 gm Potassium Chloride (K-Dur) 10 meq PO WB [facility] Last Admin: 03/26/17 09:14 Dose: 10 meq Subjective: Patient seen and chart reviewed. Case discussed with treatment team. On interview, patient is pleasant, less hyperverbal and more organized. She continues to report that her mood is good and she is feeling well physically. Patient has gotten Zyprexa in drink several nights but has not yet willingly taken it. is present and also reports that patient is doing well. Discussed with patient that I would like her to take medication (Zyprexa) in addition to lithium; she is consenting to this today - will attempt to give it to her tonight rather than put it in her drink. Patient denies any SI, HI or AVH. Patient denies any adverse side effects related to psychotropic medications. Nursing staff report patient has been cooperative overall and adherent with medications. Patient slept 8 hours overnight. VSS. Fair appetite - improving after viral illness. Psychotropic PRNs required in the past 24 hours: none. Patient will need Home Health services after discharge. Start Time: 16:20 Stop Time: 16:40 Mental Status Exam Vitals: Last Vital Signs Temp 98.1 F 03/26/17 19:32 Pulse 73 03/26/17 19:32 Resp 16 03/26/17 19:32 BP 114/69 03/26/17 19:32 Pulse Ox 95 03/26/17 19:32 Height: 1.57 m Weight: 78.2 kg - Mental Status Exam Muscle Strength/Tone: Normal Dressing: Casual Grooming: Good Attitude: Cooperative Motor Activity: Normal Eye Contact: Fair Speech: Normal Volume: Normal Rhythm: Appropriate Rhythm Orientation: Oriented X4 Mood: Euthymic Affect: Bright Rate of Thoughts: Appropriate Rate Thought Organization: Circumstantial Associations: Intact Abstract Reasoning: Poor abstract reasoning Thought Content: Normal (Giggles frequently) Perception/Psychotic: Hx psychosis, not current Language: Naming Intact Fund of Knowledge: Other (Decreased) Memory: Grossly Intact Suicidal Ideation: Denies Homicidal Ideation: Denies Insight: Limited Judgement: Limited Impulse Control: Fair - Laboratory Result Diagrams: 03/22/17 07:01 03/26/17 06:22 Laboratory Results - last 24 hr 03/26/17 03/26/17 06:22 06:23 Turbidity < 20 Sodium 146 H Potassium 3.7 Chloride 110 H Carbon Dioxide 28 Anion Gap 8 BUN 12.0 Creatinine 1.0 D GFR Calculation 54 BUN/Creatinine Ratio 12 Glucose 90 Calculated Osmolality 281 H Calcium 9.2 Icterus Index < 2 TSH 53.50 H Specimen Hemolysis 22 [place] 1.2 Assessment and Plan (1) Urinary tract infection Qualifiers: Urinary tract infection type: acute cystitis Hematuria presence: without hematuria Qualified Code(s): N30.00 - Acute cystitis without hematuria Current visit: Yes Status: Acute (2) Hypothyroidism Qualifiers: Hypothyroidism type: postablative Qualified Code(s): E89.0 - Postprocedural hypothyroidism Current visit: Yes Status: Acute (3) 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 Hospital Course: Assessment Delirium Bipolar disorder Asymptomatic bacteruria Hypothyroidism, postablation 03/15/17-hospitalist consult Psychiatric management per Dr. Roy. [place] has been restarted. Recommend routine workup. Asymptomatic bacteruria - will wait to start antibiotics. Follow results of culture. If she becomes symptomatic will start antibiotics. Resume Synthroid ( reports that he didn't think she's been taking her meds for about a month). When she last saw Dr. Tiwari 02/02/17 her TSH was 17.41 and he increased Synthroid to 75 mcg. Today, her TSH is 78.7 - ED MD discussed with Dr. Tiwari who recommended to resume Synthroid at 75 mcg. Recheck TSH in a month. Blood pressure was elevated on 2 of 3 readings since arrival. If this trend continues we may start her on an antihypertensive. Labs reviewed - stable. Mild elevation in AST. Dr. Tiwari's notes reviewed. Awaiting records from Dr. Bañuelos's office. Discussed with Dr. Man and [facility] staff. 03/16/17 18:55 Pt remains tangential and some what disorganized. Increase [place] to 300mg PO BID 03/17/17 12:38Psy Remains tangential and disorganized. Start Zyprexa 5mg HS 03/18/17 12:36 Remains tangential. Continue current care and encourage pt to take Zyprexa 03/19/17 11:11 Will check CBC, CMP, free T4 and UA to rule out infection or electrolyte abnormalities which could be contributing to her delirium. Further plan of care to be determined following review of results. 03/19/17 19:52 Pt slowly improving. Will switch Zyprexa to Zydis 03/20/17 19:33 Pt remains tangential and disorganized. Continue current care 03/21/17 19:54 Patient tested positive for Norovirus today - will monitor as she progresses through virus and attempt to maintain hydration while on lithium. Continue current care and see if patient is compliant with Zyprexa Zydis tonight. Will plan for Li level and repeat TSH at some point in the near future. 03/22/17 10:24 She is on contact precautions. This should continue until 48 hours after her last loose stool. Hypokalemia likely related to fluid loss from diarrhea. Will monitor. Expect this to improve without intervention. Patient is interested in eating and drinking at this point 03/22/17 18:27 Psych: Patient continues to be manic and refused Zyprexa last night. Continue current medications - will add Zydis to drink this evening which will hopefully improve compliance. Will plan for Li level and repeat TSH at some point in the near future. 03/23/17 20:28 Psych: Patient continues to be hypomanic though improving slightly. Continue [place] and Zyprexa in drink over the weekend - will discuss with patient on Sunday as she will have to be willing to take the medication after discharge. Will need home health services for assistance with medication management after discharge. 03/24/17 20:56 Psych: Continue current care, allowing Zyprexa time to take effect. Still plan to discuss treatment regimen with her on Sunday as above. Patient will hopefully be off contact precautions tonight. Will plan for Li level, TSH on Sunday AM. 03/25/17 15:56 Patient continues to improve. Diarrhea resolved. No GI c/o. s/p treatment for UTI- no urinary sx reported. Potassium continues low- will add low dose KCL daily. Plan recheck labs in AM for stability. Continue synthroid. Vitals look good. 03/25/17 19:37 Psych: Continue current care - will discuss addition of Zyprexa with patient tomorrow. Will check Li level, TSH in AM along with labs from hospitalist. 03/27/17 13:36 Psych: Patient willing to take Zyprexa tonight rather than in drink. Trough Li level 1.2 this AM; TSH continues to be very elevated - free T4 pending. Will follow. Monitor for adherence with Zyprexa now as she has refused it in the past. Patient will need home health services upon discharge and would like to f/ u with Dr. Roy for psychiatric care.
[2017-03-27] MEDS: LEVOTHYROXINE 75 MCG TABLET PO SCH (06:19)
[2017-03-27] MEDS: POLYETHYL GLYCOL 3350 17gm PACKET PO SCH (09:30)
[2017-03-27] MEDS: LITHIUM CARBONATE 150 MG CAPSULE PO SCH ×3 (09:30→20:24)
[2017-03-27] MEDS: ASPIRIN *EC* 81 MG TABLET PO SCH (09:30)
--- NOTE | 2017-03-27 14:30 | Progress Note ---
Subjective: Brielle is seen today in follow up for her recent bipolar with hyun. She is initially seen in her room but immediately upon my arrival, she wants to walk together to the day room and look for a snack. She ambulates easily and denies any complaints including no chest pain, shortness of breath, abdominal pain, nausea, vomiting or dysuria. Her appetite has been good and her bowels are moving. Prior records and nursing notes were reviewed. Recent labs indicate hypernatremia with sodium of 146. Otherwise, she states she is doing well. Objective Vital signs: Temperature 97.0 F 03/27/17 09:00 Pulse Rate 80 03/27/17 09:00 Respiratory Rate 18 03/27/17 09:00 Blood Pressure 133/71 03/27/17 09:00 Pulse Oximetry 98 03/27/17 09:00 Height/Weight/BMI: Height 5 ft 2 in Weight 172 lb 6.424 oz Body Mass Index 31.9 - Constitutional Present: no acute distress, well nourished, well developed, cooperative - Routine HEENT Exam Head: Present: normocephalic, atraumatic Eye: Present: PERRL. Absent: conjunctival icterus ENT: Present: mucous membranes moist - Routine Respiratory Exam Present: CTA bilaterally - Routine Cardiovascular Exam Present: RRR, S1, S2 - Routine Abdominal Exam Present: soft, normoactive bowel sounds, non distended, non tender - Routine Extremities Exam Present: no edema - Routine Back/Spine/Pelvis Exam Back/Spine: Present: full ROM - Routine Musculoskeletal Exam Musculoskeletal: Present: normal strength, moving extremities well - Routine Skin Exam Present: intact, dry. 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 Acute Hypokalemia, resolved. Delirium, acute. Recent UTI - treated with 3 doses of Macrobid, resolved. Bipolar disorder, chronic. Hypothyroidism, postablation, chronic. Plan 03/27/17 Patient continues to improve. Still slightly hyperverbal but doing well. Continue with psychiatric care per team. Diarrhea resolved. No GI c/o. s/p treatment for UTI- no urinary sx reported. Hypokalemia resolved with potassium 3.7 on 03/26. Continue daily potassium and monitor electrolytes periodically throughout admission. Continue Synthroid for hypothyroidism. TSH on 03/26 was still elevated at 53.50 with T4 pending. Recheck TSH in 2 weeks. Continue to provide safe and supportive environment. Anticipate discharge in near future. - Time spent with patient 25 - 35 minutes Sepsis Assessment - Evaluation Sepsis screening result: No Definite Risk Hospital Course Summary Disclaimer: The visit summary below is not to be considered part of the above Progress Note. Hospital Course: Assessment Delirium Bipolar disorder Asymptomatic bacteruria Hypothyroidism, postablation 03/15/17-hospitalist consult Psychiatric management per Dr. Roy. [place] has been restarted. Recommend routine workup. Asymptomatic bacteruria - will wait to start antibiotics. Follow results of culture. If she becomes symptomatic will start antibiotics. Resume Synthroid ( reports that he didn't think she's been taking her meds for about a month). When she last saw Dr. Tiwari 02/02/17 her TSH was 17.41 and he increased Synthroid to 75 mcg. Today, her TSH is 78.7 - ED MD discussed with Dr. Tiwari who recommended to resume Synthroid at 75 mcg. Recheck TSH in a month. Blood pressure was elevated on 2 of 3 readings since arrival. If this trend continues we may start her on an antihypertensive. Labs reviewed - stable. Mild elevation in AST. Dr. Tiwari's notes reviewed. Awaiting records from Dr. Bañuelos's office. Discussed with Dr. Man and [facility] staff. 03/16/17 18:55 Pt remains tangential and some what disorganized. Increase [place] to 300mg PO BID 03/17/17 12:38Psy Remains tangential and disorganized. Start Zyprexa 5mg HS 03/18/17 12:36 Remains tangential. Continue current care and encourage pt to take Zyprexa 03/19/17 11:11 Will check CBC, CMP, free T4 and UA to rule out infection or electrolyte abnormalities which could be contributing to her delirium. Further plan of care to be determined following review of results. 03/19/17 19:52 Pt slowly improving. Will switch Zyprexa to Zydis 03/20/17 19:33 Pt remains tangential and disorganized. Continue current care 03/21/17 19:54 Patient tested positive for Norovirus today - will monitor as she progresses through virus and attempt to maintain hydration while on lithium. Continue current care and see if patient is compliant with Zyprexa Zydis tonight. Will plan for Li level and repeat TSH at some point in the near future. 03/22/17 10:24 She is on contact precautions. This should continue until 48 hours after her last loose stool. Hypokalemia likely related to fluid loss from diarrhea. Will monitor. Expect this to improve without intervention. Patient is interested in eating and drinking at this point 03/22/17 18:27 Psych: Patient continues to be manic and refused Zyprexa last night. Continue current medications - will add Zydis to drink this evening which will hopefully improve compliance. Will plan for Li level and repeat TSH at some point in the near future. 03/23/17 20:28 Psych: Patient continues to be hypomanic though improving slightly. Continue [place] and Zyprexa in drink over the weekend - will discuss with patient on Sunday as she will have to be willing to take the medication after discharge. Will need home health services for assistance with medication management after discharge. 03/24/17 20:56 Psych: Continue current care, allowing Zyprexa time to take effect. Still plan to discuss treatment regimen with her on Sunday as above. Patient will hopefully be off contact precautions tonight. Will plan for Li level, TSH on Sunday AM. 03/25/17 15:56 Patient continues to improve. Diarrhea resolved. No GI c/o. s/p treatment for UTI- no urinary sx reported. Potassium continues low- will add low dose KCL daily. Plan recheck labs in AM for stability. Continue synthroid. Vitals look good. 03/25/17 19:37 Psych: Continue current care - will discuss addition of Zyprexa with patient tomorrow. Will check Li level, TSH in AM along with labs from hospitalist. 03/27/17 13:36 Psych: Patient willing to take Zyprexa tonight rather than in drink. Trough Li level 1.2 this AM; TSH continues to be very elevated - free T4 pending. Will follow. Monitor for adherence with Zyprexa now as she has refused it in the past. Patient will need home health services upon discharge and would like to f/ u with Dr. Roy for psychiatric care. 03/27/17 14:36 Patient continues to improve. Still slightly hyperverbal but doing well. Continue with psychiatric care per team. Diarrhea resolved. No GI c/o. s/p treatment for UTI- no urinary sx reported. Hypokalemia resolved with potassium 3.7 on 03/26. Continue daily potassium and monitor electrolytes periodically throughout admission. Continue Synthroid for hypothyroidism. TSH on 03/26 was still elevated at 53.50 with T4 pending. Recheck TSH in 2 weeks. Continue to provide safe and supportive environment. Anticipate discharge in near future.
[2017-03-27] MEDS: OLANZapine ODT 5 MG TABLET PO SCH ×2 (19:42→20:25)
--- NOTE | 2017-03-27 20:38 | Neuropsych Progress Note ---
[facility] Subjective Date: 03/27/17 - Sujective/Severity of Illness Medications: Aspirin (Ecotrin) 81 mg PO DAILY [facility] Last Admin: 03/27/17 09:30 Dose: 81 mg Glycerin (Sani-Supp) 1 supp RECTALLY PRN PRN PRN Reason: Constipation Last Admin: 03/17/17 18:10 Dose: 1 supp Haloperidol (Haldol) 0.5 mg PO Q6H PRN PRN Reason: Extreme agitation Haloperidol Lactate (Haldol) 0.5 mg IM Q6H PRN PRN Reason: Extreme agitation Levothyroxine Sodium (Synthroid) 75 mcg PO ACB [facility] Last Admin: 03/27/17 06:19 Dose: 75 mcg [place] Carbonate ([place]) 300 mg PO BID [facility] Last Admin: 03/27/17 20:24 Dose: Not Given Lorazepam (Ativan) 0.5 mg PO Q6H PRN PRN Reason: Extreme agitation Lorazepam (Ativan Inj) 0.5 mg IM Q6H PRN PRN Reason: Extreme agitation Olanzapine (Zyprexa Zydis) 5 mg PO HS [facility] Last Admin: 03/27/17 20:25 Dose: Not Given Ondansetron HCl (Zofran Po) 4 mg PO Q6H PRN PRN Reason: Nausea &/or vomiting Last Admin: 03/18/17 23:02 Dose: 4 mg Polyethylene Glycol (Miralax) 17 gm PO DAILY [facility] Last Admin: 03/27/17 09:30 Dose: 17 gm Potassium Chloride (K-Dur) 10 meq PO WB [facility] Last Admin: 03/27/17 09:30 Dose: 10 meq Subjective: Patient seen and chart reviewed. Case discussed with treatment team. On interview, patient is pleasant, less hyperverbal and more organized. She continues to report that her mood is good and she is feeling well physically. Patient took oral Zyprexa last night without incident and is willing to again tonight; she reports that she is tolerating it well. Patient denies any SI, HI or AVH. Patient denies any adverse side effects related to psychotropic medications. Nursing staff report patient has been cooperative overall and adherent with medications. Patient slept well overnight. VSS. Fair appetite - improving after viral illness. Psychotropic PRNs required in the past 24 hours: none. SW has discussed with need for medication management/oversight in lieu of services as patient is not homebound. Will f/u with Dr. Roy after discharge. Start Time: 17:20 Stop Time: 17:40 Mental Status Exam Vitals: Last Vital Signs Temp 98.7 F 03/27/17 20:28 Pulse 76 03/27/17 20:28 Resp 18 03/27/17 20:28 BP 136/81 03/27/17 20:28 Pulse Ox 96 03/27/17 20:28 Height: 1.57 m Weight: 78.2 kg - Mental Status Exam Muscle Strength/Tone: Normal Dressing: Casual Grooming: Good Attitude: Cooperative Motor Activity: Normal Eye Contact: Fair Speech: Normal Volume: Normal Rhythm: Appropriate Rhythm Orientation: Oriented X4 Mood: Euthymic Affect: Bright Rate of Thoughts: Appropriate Rate Thought Organization: Circumstantial Associations: Intact Abstract Reasoning: Poor abstract reasoning Thought Content: Normal (Giggles frequently) Perception/Psychotic: Hx psychosis, not current Language: Naming Intact Fund of Knowledge: Appropriate Memory: Grossly Intact Suicidal Ideation: Denies Homicidal Ideation: Denies Insight: Fair Judgement: Fair Impulse Control: Good - Laboratory Result Diagrams: 03/22/17 07:01 03/26/17 06:22 Assessment and Plan (1) Severe manic bipolar 1 disorder with psychotic behavior Problem details: Psychosis, hyun resolved by time of discharge Current visit : Yes Status: Chronic (2) Urinary tract infection Qualifiers: Urinary tract infection type: acute cystitis Hematuria presence: without hematuria Qualified Code(s): N30.00 - Acute cystitis without hematuria Current visit: Yes Status: Acute (3) Hypothyroidism Qualifiers: Hypothyroidism type: postablative Qualified Code(s): E89.0 - Postprocedural hypothyroidism Current visit: Yes Status: Acute (4) Norovirus Current visit: Yes Status: Acute Hospital Course Summary Disclaimer: The visit summary below is not to be considered part of the above Progress Note. Hospital Course: Assessment Delirium Bipolar disorder Asymptomatic bacteruria Hypothyroidism, postablation 03/15/17-hospitalist consult Psychiatric management per Dr. Roy. [place] has been restarted. Recommend routine workup. Asymptomatic bacteruria - will wait to start antibiotics. Follow results of culture. If she becomes symptomatic will start antibiotics. Resume Synthroid ( reports that he didn't think she's been taking her meds for about a month). When she last saw Dr. Tiwari 02/02/17 her TSH was 17.41 and he increased Synthroid to 75 mcg. Today, her TSH is 78.7 - ED MD discussed with Dr. Tiwari who recommended to resume Synthroid at 75 mcg. Recheck TSH in a month. Blood pressure was elevated on 2 of 3 readings since arrival. If this trend continues we may start her on an antihypertensive. Labs reviewed - stable. Mild elevation in AST. Dr. Tiwari's notes reviewed. Awaiting records from Dr. Bañuelos's office. Discussed with Dr. Man and [facility] staff. 03/16/17 18:55 Pt remains tangential and some what disorganized. Increase [place] to 300mg PO BID 03/17/17 12:38Psy Remains tangential and disorganized. Start Zyprexa 5mg HS 03/18/17 12:36 Remains tangential. Continue current care and encourage pt to take Zyprexa 03/19/17 11:11 Will check CBC, CMP, free T4 and UA to rule out infection or electrolyte abnormalities which could be contributing to her delirium. Further plan of care to be determined following review of results. 03/19/17 19:52 Pt slowly improving. Will switch Zyprexa to Zydis 03/20/17 19:33 Pt remains tangential and disorganized. Continue current care 03/21/17 19:54 Patient tested positive for Norovirus today - will monitor as she progresses through virus and attempt to maintain hydration while on lithium. Continue current care and see if patient is compliant with Zyprexa Zydis tonight. Will plan for Li level and repeat TSH at some point in the near future. 03/22/17 10:24 She is on contact precautions. This should continue until 48 hours after her last loose stool. Hypokalemia likely related to fluid loss from diarrhea. Will monitor. Expect this to improve without intervention. Patient is interested in eating and drinking at this point 03/22/17 18:27 Psych: Patient continues to be manic and refused Zyprexa last night. Continue current medications - will add Zydis to drink this evening which will hopefully improve compliance. Will plan for Li level and repeat TSH at some point in the near future. 03/23/17 20:28 Psych: Patient continues to be hypomanic though improving slightly. Continue [place] and Zyprexa in drink over the weekend - will discuss with patient on Sunday as she will have to be willing to take the medication after discharge. Will need home health services for assistance with medication management after discharge. 03/24/17 20:56 Psych: Continue current care, allowing Zyprexa time to take effect. Still plan to discuss treatment regimen with her on Sunday as above. Patient will hopefully be off contact precautions tonight. Will plan for Li level, TSH on Sunday AM. 03/25/17 15:56 Patient continues to improve. Diarrhea resolved. No GI c/o. s/p treatment for UTI- no urinary sx reported. Potassium continues low- will add low dose KCL daily. Plan recheck labs in AM for stability. Continue synthroid. Vitals look good. 03/25/17 19:37 Psych: Continue current care - will discuss addition of Zyprexa with patient tomorrow. Will check Li level, TSH in AM along with labs from hospitalist. 03/27/17 13:36 Psych: Patient willing to take Zyprexa tonight rather than in drink. Trough Li level 1.2 this AM; TSH continues to be very elevated - free T4 pending. Will follow. Monitor for adherence with Zyprexa now as she has refused it in the past. Patient will need home health services upon discharge and would like to f/ u with Dr. Roy for psychiatric care. 03/27/17 14:36 Patient continues to improve. Still slightly hyperverbal but doing well. Continue with psychiatric care per team. Diarrhea resolved. No GI c/o. s/p treatment for UTI- no urinary sx reported. Hypokalemia resolved with potassium 3.7 on 03/26. Continue daily potassium and monitor electrolytes periodically throughout admission. Continue Synthroid for hypothyroidism. TSH on 03/26 was still elevated at 53.50 with T4 pending. Recheck TSH in 2 weeks. Continue to provide safe and supportive environment. Anticipate discharge in near future. 03/27/17 20:39 Psych: Discharge to home with on 03/28 to follow up with Dr. Roy for outpatient psychiatric services. in agreement with plan and agrees to provide medication management/oversight. Free T4 pending; recommend rechecking TSH in 2 weeks per hospitalist recommendations.
--- NOTE | 2017-03-27 20:49 | Discharge Instructions ---
Discharge Plan - Med Rec/Dispo Referrals/Follow Up: Arsh Bañuelos MD [Family Provider] - Additional Instructions: Patient to f/u with Dr. Tara Roy for outpatient psychiatric care. agrees to provide oversight of patient's medications. Please call 911 or go to ED if an emergency occurs. Pending labs: Free T4. Patient to have TSH re-tested in 2 weeks per hospitalist. Prescriptions: New OLANZapine ODT [ZyPREXA Zydis] 5 mg PO HS 30 Days #30 tab Potassium Chloride [K-Dur] 10 meq PO WB 30 Days #30 tab [place] Carbonate [[place]] 300 mg PO BID 30 Days #60 cap Continue aspirin 81 mg tablet,delayed release 81 mg PO DAILY tab Synthroid 75 mcg tablet 75 mcg PO QAM #90 tab NS Discontinued lithium carbonate ER 300 mg tablet,extended release 300 mg PO DAILY tab - Disposition 01 Discharged Home, Self-Care
[2017-03-28] MEDS: LEVOTHYROXINE 75 MCG TABLET PO SCH (05:42)
[2017-03-28 08:11] VITALS: TEMP 98.4
[2017-03-28] MEDS: ASPIRIN *EC* 81 MG TABLET PO SCH (08:12)
[2017-03-28] MEDS: LITHIUM CARBONATE 150 MG CAPSULE PO SCH (08:12)
[2017-03-28] MEDS: POLYETHYL GLYCOL 3350 17gm PACKET PO SCH (08:13)
--- NOTE | 2017-03-28 14:00 | Discharge Instructions ---
Discharge Plan - Med Rec/Dispo Referrals/Follow Up: Arsh Bañuelos MD [Family Provider] - (Dr. Lissa Bañuelos on 04/03/17 at 10:00 am for Hosp. follow-up. [facility] [place] [id number] [facility] does appt's. by walk-in only. M-W 8-3:30 Th. 11-3:30 Fri. 8-2:30) Additional Instructions: Discharge Diagnosis: Reasons for Admission: Patient to f/u with Dr. Tara Roy for outpatient psychiatric care. agrees to provide oversight of patient's medications. Please call 911 or go to ED if an emergency occurs. Pending labs: Free T4. Patient to have TSH re-tested in 2 weeks per hospitalist. IN CASE OF PSYCHIATRIC EMERGENCY, CONTACT [facility] AT [phone] ( available 24 hrs daily). Patient was started on potassium supplement during stay due to low potassium. Will need a follow up potassium level blood test done in 2-3 weeks. Prescriptions: New OLANZapine ODT [ZyPREXA Zydis] 5 mg PO HS 30 Days #30 tab Potassium Chloride [K-Dur] 10 meq PO WB 30 Days #30 tab [place] Carbonate [[place]] 300 mg PO BID 30 Days #60 cap Continue aspirin 81 mg tablet,delayed release 81 mg PO DAILY tab Synthroid 75 mcg tablet 75 mcg PO QAM #90 tab NS Discontinued lithium carbonate ER 300 mg tablet,extended release 300 mg PO DAILY tab - Disposition 01 Discharged Home, Self-Care
[2017-03-28 16:35] VITALS: BP 142/96; PULSE 70; RESP 20; O2SAT 95
--- NOTE | 2017-05-07 11:20 | Neuropsychiatric Disch Summary ---
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 reports recently the pt stop taking her meds and has been increasingly confused with bizarre behavior. Pt would lie on the floor and not speak and not allow her to turn on the lights. She was paranoid believing her would be arrested and has not been sleeping. It was noted her Cathay level was 0.2 and her TSh was in the 70's. On face to face the pt is pleasant but confused. She is tangential with pressured speech. She is a poor historian and is not able to give a very good hx. STRESSORS; Pt recently stopped taking her meds. Her lithium level is low and TSH is elevatyd. She also has a UTI. PSYCH ROS: Pt reports her mood is stable. She does report decreased need for sleep and her speech is pressured and tangential. She is hyperverbal but not irritable. She denies feeling depressed. Denies psychosis. PAST PSYCH: Unclear at this time. reports she has been diagnosed with Bipolar D/O and has numerous hospitalizations in the past but they wee many years ago. He states about every eight years the pt stops meds and has a similar episode Hospital Course This is a general summary of the patient's hospital course. For more details refer to the complete medical record. Hospital course: Assessment Delirium Bipolar disorder Asymptomatic bacteruria Hypothyroidism, postablation 03/15/17-hospitalist consult Psychiatric management per Dr. Roy. Cathay has been restarted. Recommend routine workup. Asymptomatic bacteruria - will wait to start antibiotics. Follow results of culture. If she becomes symptomatic will start antibiotics. Resume Synthroid ( reports that he didn't think she's been taking her meds for about a month). When she last saw Dr. Tiwari 02/02/17 her TSH was 17.41 and he increased Synthroid to 75 mcg. Today, her TSH is 78.7 - ED MD discussed with Dr. Tiwari who recommended to resume Synthroid at 75 mcg. Recheck TSH in a month. Blood pressure was elevated on 2 of 3 readings since arrival. If this trend continues we may start her on an antihypertensive. Labs reviewed - stable. Mild elevation in AST. Dr. Tiwari's notes reviewed. Awaiting records from Dr. Bañuelos's office. Discussed with Dr. [facility]. 03/16/17 18:55 Pt remains tangential and some what disorganized. Increase Cathay to 300mg PO BID 03/17/17 12:38Psy Remains tangential and disorganized. Start Zyprexa 5mg HS 03/18/17 12:36 Remains tangential. Continue current care and encourage pt to take Zyprexa 03/19/17 11:11 Will check CBC, CMP, free T4 and UA to rule out infection or electrolyte abnormalities which could be contributing to her delirium. Further plan of care to be determined following review of results. 03/19/17 19:52 Pt slowly improving. Will switch Zyprexa to Zydis 03/20/17 19:33 Pt remains tangential and disorganized. Continue current care 03/21/17 19:54 Patient tested positive for Norovirus today - will monitor as she progresses through virus and attempt to maintain hydration while on lithium. Continue current care and see if patient is compliant with Zyprexa Zydis tonight. Will plan for Li level and repeat TSH at some point in the near future. 03/22/17 10:24 She is on contact precautions. This should continue until 48 hours after her last loose stool. Hypokalemia likely related to fluid loss from diarrhea. Will monitor. Expect this to improve without intervention. Patient is interested in eating and drinking at this point 03/22/17 18:27 Psych: Patient continues to be manic and refused Zyprexa last night. Continue current medications - will add Zydis to drink this evening which will hopefully improve compliance. Will plan for Li level and repeat TSH at some point in the near future. 03/23/17 20:28 Psych: Patient continues to be hypomanic though improving slightly. Continue Cathay and Zyprexa in drink over the weekend - will discuss with patient on Sunday as she will have to be willing to take the medication after discharge. Will need home health services for assistance with medication management after discharge. 03/24/17 20:56 Psych: Continue current care, allowing Zyprexa time to take effect. Still plan to discuss treatment regimen with her on Sunday as above. Patient will hopefully be off contact precautions tonight. Will plan for Li level, TSH on Sunday AM. 03/25/17 15:56 Patient continues to improve. Diarrhea resolved. No GI c/o. s/p treatment for UTI- no urinary sx reported. Potassium continues low- will add low dose KCL daily. Plan recheck labs in AM for stability. Continue synthroid. Vitals look good. 03/25/17 19:37 Psych: Continue current care - will discuss addition of Zyprexa with patient tomorrow. Will check Li level, TSH in AM along with labs from hospitalist. 03/27/17 13:36 Psych: Patient willing to take Zyprexa tonight rather than in drink. Trough Li level 1.2 this AM; TSH continues to be very elevated - free T4 pending. Will follow. Monitor for adherence with Zyprexa now as she has refused it in the past. Patient will need home health services upon discharge and would like to f/ u with Dr. Roy for psychiatric care. 03/27/17 14:36 Patient continues to improve. Still slightly hyperverbal but doing well. Continue with psychiatric care per team. Diarrhea resolved. No GI c/o. s/p treatment for UTI- no urinary sx reported. Hypokalemia resolved with potassium 3.7 on 03/26. Continue daily potassium and monitor electrolytes periodically throughout admission. Continue Synthroid for hypothyroidism. TSH on 03/26 was still elevated at 53.50 with T4 pending. Recheck TSH in 2 weeks. Continue to provide safe and supportive environment. Anticipate discharge in near future. 03/27/17 20:39 Psych: Discharge to home with on 03/28 to follow up with Dr. Roy for outpatient psychiatric services. in agreement with plan and agrees to provide medication management/oversight. Free T4 pending; recommend rechecking TSH in 2 weeks per hospitalist recommendations. Time spent with patient: less than 15 minutes Discharge Plan - Med Rec/Dispo Referrals/Follow Up: Arsh Bañuelos MD [Family Provider] - (Dr. Lissa Bañuelos on 04/03/17 at 10:00 am for Hosp. follow-up. [facility] [place] [address] [place] [id number] [facility] does appt's. by walk-in only. M-W 8-3:30 Thurs. 11-3:30 Fri. 8-2:30) Additional Instructions: Discharge Diagnosis: Reasons for Admission: Patient to f/u with Dr. Tara Roy for outpatient psychiatric care. agrees to provide oversight of patient's medications. Please call 911 or go to ED if an emergency occurs. Pending labs: Free T4. Patient to have TSH re-tested in 2 weeks per hospitalist. IN CASE OF PSYCHIATRIC EMERGENCY, CONTACT [facility] STAFF AT [phone] ( available 24 hrs daily). Patient was started on potassium supplement during stay due to low potassium. Will need a follow up potassium level blood test done in 2-3 weeks. Prescriptions: New OLANZapine ODT [ZyPREXA Zydis] 5 mg PO HS 30 Days #30 tab Potassium Chloride [K-Dur] 10 meq PO WB 30 Days #30 tab Cathay Carbonate [Cathay] 300 mg PO BID 30 Days #60 cap Continue aspirin 81 mg tablet,delayed release 81 mg PO DAILY tab Synthroid 75 mcg tablet 75 mcg PO QAM #90 tab NS Discontinued Lithobid (lithium carbonate ER) 300 mg tablet,ER 300 mg PO DAILY tab - Disposition 01 Discharged Home, Self-Care
== END 2017-03-28 17:55 | disposition home or self-care (01) | DRG 885 ==
LOC: ED 06:39 → GEN 09:38
PROVIDERS: ADMIT Psychiatry & Neurology Psychiatry; ATTEND Psychiatry & Neurology Psychiatry